=== PATIENT | female | born 1935 | race Caucasian/White ===

== ENCOUNTER 2016-08-17 21:52 | Inpatient (IN) | payer MEDICARE ==
[~2016-08-17] VITALS: Ht 162.6 cm; Wt 65.0 kg
[~2016-08-17 21:52] MED LIST: CALCTAB19 PO; DIPH2.5T14 PO; LACTCAP8 PO; LEVO50TA4 PO; LOVA20TA PO; MIRT30TA PO; MULTTAB6 PO; TELM1TAB2 PO; TRAM50TA PO
[2016-08-17 22:00] VITALS: BP 134/64; PULSE 73; RESP 18; TEMP 99; O2SAT 98
--- NOTE | 2016-08-17 22:05 | PD ---
HPI Chief Complaint: Abdominal Pain Time Seen by Provider: 22:05 Travel History International Travel<30 days: No Contact w/Intl Traveler<30days: No Traveled to known affect area: No History of Present Illness HPI 81-year-old female coming in with sudden onset abdominal pain at roughly 5:30 PM this evening area patient states she had eaten supper and took some tramadol and her lovastatin which she feels started her abdominal discomfort. Patient states epigastric pain and tenderness and nausea without vomiting. Patient states she did have a bowel movement was normal after the onset of this pain which slightly decreased her overall discomfort. However, patient states the pain has progressively worsened and shifted to both flanks and back, as well as lower end of the stomach. She continues to be nauseous but no vomiting has occurred. She denies fever, chills or other symptoms. Patient has had her appendix removed, but still has her gallbladder. Patient denies specific chest pain or shortness of breath. Patient has a history of chronic low back pain in the past. She is not a drinker and denies significant alcohol use. No history of pancreatitis in the past. She is allergic to codeine, cortisone, and penicillin. PFSH Past Medical History Arthritis: Yes Blood Disorders: No Heart Rhythm Problems: No Cancer: Yes (MULTIPLE BCC EXCISION) Cardiac Catheterization: No Cardiovascular Problems: No High Cholesterol: Yes Chemotherapy: No Congestive Heart Failure: No Diabetes: No Endocrine: Yes Gastrointestinal Disorders: Yes GERD: Yes Genitourinary: No Hiatal Hernia: Yes Hypertension: Yes Immune Disorder: No Musculoskeletal: Yes Neurologic: Yes Psychiatric: No Reproductive: No Respiratory: No Radiation Therapy: No Thyroid Disease: Yes Ulcer: Yes Past Surgical History Abdominal Surgery: Yes (APPENDECTOMY (AGE 21) ) Appendectomy: Yes Coronary Artery Bypass Graft: No Gynecologic Surgery: Yes (HYSTERECTOMY 1999) Neurologic Surgery: Yes (LAMINECTOMY 1978) Oral Surgery: Yes (T&A (AGE 12); ) Other Surgery: Yes Social History Alcohol Use: Yes (ONE DRINK DAILY) Tobacco Use: No Substance Use: No Allergies-Medications (Allergen,Severity, Reaction): Coded Allergies: Codeine (Unverified Allergy, Severe, RASH, 08/17/16) Cortisone (Verified Allergy, Severe, INCREASED HEART RATE; FLUSHING, 08/17) Penicillin (Verified Allergy, Severe, RASH, 08/17/16) Reported Meds & Prescriptions Reported Meds & Active Scripts Active Reported Mirtazapine 30 Mg Tab Tramadol (Tramadol HCl) 50 Mg Tab Telmisartan 80 Mg Tab 80 Mg PO DAILY Probiotic (Lactobacillus Acidophilus) 1 Cap Cap 1 Cap PO TIDAC Multi-Vitamin (Multiple Vitamin) 1 Tab Tab Lovastatin 20 Mg Tab Levothyroxine (Levothyroxine Sodium) 50 Mcg Tab Calcium 600+D (Calcium Carbonate-Vitamin D) 600-200 Mg-Unit Tab 1 Tab PO BID Review of Systems Except as stated in HPI: all other systems reviewed are Neg General / Constitutional: No: Fever Eyes: No: Visual changes HENT: No: Headaches Cardiovascular: No: Chest Pain or Discomfort Respiratory: No: Shortness of Breath Gastrointestinal: Positive: Nausea, Abdominal Pain (see history of present illness), No: Vomiting, Diarrhea Genitourinary: No: Dysuria Musculoskeletal: No: Pain Skin: No Rash Neurologic: No: Weakness Psychiatric: No: Depression Endocrine: No: Polydipsia Hematologic/Lymphatic: No: Easy Bruising Physical Exam Narrative GENERAL: Patient appears in mild to moderate distress. SKIN: Warm and dry. Normal color. Normal turgor. No diaphoresis. HEAD: Atraumatic. Normocephalic. EYES: Pupils equal and round. No scleral icterus. No injection or drainage. ENT: No nasal bleeding or discharge. Mucous membranes pink and moist. Pharynx is unremarkable. Airway is patent. NECK: Trachea midline. No JVD. Supple and nontender. CARDIOVASCULAR: Regular rate and rhythm. No murmurs gallops or rubs. RESPIRATORY: No accessory muscle use. Clear to auscultation. Breath sounds equal bilaterally. GASTROINTESTINAL: Abdomen soft, moderate epigastric and right upper quadrant tenderness, nondistended. Positive Munroe sign on the right. Hepatic and splenic margins not palpable. MUSCULOSKELETAL: Extremities without clubbing, cyanosis, or edema. No obvious deformities. NEUROLOGICAL: Awake and alert. No obvious cranial nerve deficits. Motor grossly within normal limits. Five out of 5 muscle strength in the arms and legs. Normal speech. PSYCHIATRIC: Appropriate mood and affect; insight and judgment normal. Data Data Last Documented VS Vital Signs Date Time Temp Pulse Resp B/P Pulse Ox O2 Delivery O2 Flow Rate FiO2 08/17/16 22:40 18 98 08/17/16 22:00 99.0 73 134/64 Orders Complete Blood Count With Diff (08/17/16 22:09) Comprehensive Metabolic Panel (08/17/16 22:09) Lipase (08/17/16 22:09) Lactic Acid (08/17/16 22:09) Prothrombin Time / Inr (Pt) (08/17/16 22:09) Act Partial Throm Time (Ptt) (08/17/16 22:09) Urinalysis - C+S If Indicated (08/17/16 22:09) Iv Access Insert/Monitor (08/17/16 22:09) Ecg Monitoring (08/17/16 22:09) Oximetry (08/17/16 22:09) NPO (08/17/16 22:09) Morphine Inj (Morphine Inj) (08/17/16 22:15) Ondansetron Inj (Zofran Inj) (08/17/16 22:15) Sodium Chloride 0.9% Flush (Ns Flush) (08/17/16 22:15) Electrocardiogram (08/17/16 22:09) Sodium Chlorid 0.9% 500 Ml Inj (Ns 500 M (08/17/16 22:15) Ct Abd/Pel W Iv Contrast(Rout) (08/17/16 22:45) Oral Contrast - Adult (08/17/16 22:48) MDM Medical Decision Making Medical Screen Exam Complete: Yes Emergency Medical Condition: Yes Differential Diagnosis Gastritis. Gallbladder disease. Pancreatitis. Cardiac syndrome. Narrative Course Patient is uncomfortable but medically stable at time of exam. Labs ordered including CBC, CMP, lipase, lactic acid, PT PTT and INR, and urinalysis. Patient is given 4 mg IV morphine as well as 4 mg IV. Patient is started on 500 mL normal saline bolus. EKG is performed showing sinus rhythm without acute changes suggestive of acute MT. This is reviewed by Dr. Amaya. Abdominal CT with IV and oral contrast is ordered. 2300 hrs., the patient is discussed with Dr. Amaya assumes care of the patient. Condition: Stable Nawaf Bragg Aug 17, 2016 22:05
[2016-08-17] MEDS ORDERED: SODIUM CHLORIDE 0.9% FLUSH 5 ML FLUSH IVF PRN (22:15)
[2016-08-17] MEDS ORDERED: SODIUM CHLORID 0.9% 500 ML INJ 500 ML IV ONE (22:15)
[2016-08-17] MEDS ORDERED: MORPHINE SULFATE 4 MG/ML INJ IV PUSH ONE (22:15)
[2016-08-17] MEDS ORDERED: ONDANSETRON HCL 4 MG/2 ML VIAL IVP ONE (22:15)
[2016-08-17 22:40] VITALS: RESP 18; O2SAT 98
[2016-08-17] MEDS ORDERED: DIATRIZOATE MEGLUM/DIATRIZOATE SOD 9 ML CUP ONE (23:10)
[2016-08-17 23:44] LABS: AUTOMATED NEUTROPHIL # 6.5 TH/MM3 (1.8-7.7); BASOPHIL % 0.5 % (0.0-2.0); EOSINOPHIL % 0.1 % (0.0-4.0); HEMATOCRIT 44.7 % (35.0-46.0); HEMO FLAGS DIFF FINAL; LYMPH % 23.4 % (9.0-44.0); LYMPHOCYTE # 2.1 TH/MM3 (1.0-4.8); MEAN CELL VOLUME 89.8 FL (80.0-100.0); MEAN CORPUSCULAR HEMOGLOBIN 31.1 PG (27.0-34.0); MEAN CORPUSCULAR HGB CONC 34.6 % (32.0-36.0); MONO % 3.7 % (0.0-8.0); NEUT % 72.3 % (16.0-70.0); PLATELET COUNT 251 TH/MM3 (150-450); RED BLOOD COUNT 4.98 MIL/MM3 (4.00-5.30); RED CELL DISTRIBUTION WIDTH 13.4 % (11.6-17.2)
[2016-08-17 23:56] LABS: ALKALINE PHOSPHATASE 83 U/L (45-117); TOTAL BILIRUBIN ADULT 0.7 MG/DL (0.2-1.0)
[2016-08-17 23:57] LABS: ALT (GPT) 24 U/L (10-53); ANION GAP 13 MEQ/L (5-15); AST (GOT) 27 U/L (15-37); BICARBONATE 21.8 MEQ/L (21.0-32.0); BLOOD UREA NITROGEN 23 MG/DL (7-18); CHLORIDE 99 MEQ/L (98-107); GLOMERULAR FILTRATION RATE 55 ML/MIN (>89); POTASSIUM 3.7 MEQ/L (3.5-5.1); SODIUM (NA) 134 MEQ/L (136-145)
[2016-08-18] VITALS (11 sets, daily range): BP systolic 135–191; BP diastolic 70–83; PULSE 67–73; RESP 14–17; TEMP 97.1–98.7; O2SAT 94–100
[2016-08-18 00:09] LABS: APTT (PATIENT) 21.7 SEC (24.3-30.1); INTERNATIONAL NORMALIZED RATIO 0.9 RATIO; PROTHROMBIN TIME - PATIENT 10.4 SEC (9.8-11.6)
[2016-08-18 00:13] LABS: CREATINE KINASE 164 U/L (26-192)
[2016-08-18 01:05] LABS: BLOOD, URINE NEG (NEG); COMMENT (UR) CULT NOT INDICATED; CULTURE IF INDICATED CULT NOT INDICATED; GLUCOSE,URINE NEG (NEG); KETONE, URINE 40 mg/dL (NEG); NITRITE,URINE NEG (NEG); URINE COLOR YELLOW (YELLW/STRAW)
[2016-08-18] MEDS ORDERED: ONDANSETRON HCL 4 MG/2 ML VIAL IV PUSH ONE (01:30)
[2016-08-18] MEDS ORDERED: IOHEXOL 350 MG/ML 10 ML VIAL (for RAD DIAG) IV ONE (01:41)
--- NOTE | 2016-08-18 02:08 | RADRPT ---
EXAM DATE/TIME: 08/18/2016 01:26 [facility] COMPARISON: No previous studies available for comparison. INDICATIONS : Upper abdominal pain. IV CONTRAST: 100 cc Omnipaque 350 (iohexol) IV ORAL CONTRAST: Prescribed oral contrast ingested. RADIATION DOSE: 6.77 CTDIvol (mGy) MEDICAL HISTORY : Gastroesophageal reflux disease. Hypertension. Hernia, hiatal. SURGICAL HISTORY : Appendectomy. Hysterectomy.Fusion, lumbar.Laminectomy. ENCOUNTER: Initial ACUITY: 1 day PAIN SCALE: 5/10 LOCATION: upper quadrant abdomen TECHNIQUE: Volumetric scanning of the abdomen and pelvis was performed. Using automated exposure control and ad justment of the mA and/or kV according to patient size, radiation dose was kept as low as reasonably achievable to obtain optimal diagnostic quality images. FINDINGS: There is dilation of the common bile duct and pancreatic duct, with the common bile duct measuring 8 mm in dimension and the pancreatic duct measuring up to 7 mm. No calcifications seen in the region o f the ampulla. The pancreatic duct enlargement extends into the mid body. No calcified gallstones. The liver has a homogeneous pattern of enhancement without focal lesion. The spleen is normal in si ze. Both adrenal glands are normal in size. Both kidneys are normal in configuration without eviden ce of hydronephrosis. There are multiple dilated loops of small bowel which measure up to 3 cm in diameter. Oral contrast only passes half way through the small bowel. There are several small bowel loops in the left hypoga stric and central region that contain air-fluid levels. Moderate amount of stool in the right and tr ansverse colon. There is a moderate amount of free fluid in the pelvis on the right-sided. Urinary bladder margins are smooth. There is a 2 cm mass like density seen on image #28 located to the left of the aorta and superior mes enteric artery which is of uncertain organ of origin. This has a similar density as the duodenum and has a similar density as the pancreas. Is uncertain whether this represents the proximal jejunum or an exophytic mass arising from the pancreas (both structures have similar density on this scan). No evidence of retroperitoneal adenopathy or deep pelvic adenopathy. The inguinal regions are unremark able. The visualized lower lungs are clear. Wide windows for bony detail demonstrate the osseous structure s to be intact. Transpedicular screws are present at L5 and S1 with associated pars defect. CONCLUSION: 1. Dilated loops of small bowel with air-fluid levels suggest small bowel obstruction or dynamic ileu s. No transition point or cause for the obstruction seen. 2. Dilation of the common bile duct and pancreatic duct down to the ampulla suggests possible ampulla ry mass. No stones seen. Recommend direct visualization with ERCP. 3. There is a 2 cm soft tissue density in the left retroperitoneum which probably represents proximal loop of small bowel the junction of the duodenum and jejunum. However, the location and density wou ld also be consistent with a splenic artery aneurysm or an exophytic mass arising from the body of th e pancreas. Jones Jj MD on August 18, 2016 at 1:56 Board Certified Radiologist. This report was verified electronically.
[2016-08-18] MEDS ORDERED: SODIUM CHLOR 0.9% 1000 ML INJ 1,000 ML IV SCH (02:19)
--- NOTE | 2016-08-18 03:12 | PD ---
Data Data Last Documented VS Vital Signs Date Time Temp Pulse Resp B/P Pulse Ox O2 Delivery O2 Flow Rate FiO2 08/17/16 22:40 18 98 08/17/16 22:00 99.0 73 134/64 Orders Complete Blood Count With Diff (08/17/16 22:09) Comprehensive Metabolic Panel (08/17/16 22:09) Lipase (08/17/16 22:09) Lactic Acid (08/17/16 22:09) Prothrombin Time / Inr (Pt) (08/17/16 22:09) Act Partial Throm Time (Ptt) (08/17/16 22:09) Urinalysis - C+S If Indicated (08/17/16 22:09) Iv Access Insert/Monitor (08/17/16 22:09) Ecg Monitoring (08/17/16 22:09) Oximetry (08/17/16 22:09) NPO (08/17/16 22:09) Morphine Inj (Morphine Inj) (08/17/16 22:15) Ondansetron Inj (Zofran Inj) (08/17/16 22:15) Sodium Chloride 0.9% Flush (Ns Flush) (08/17/16 22:15) Electrocardiogram (08/17/16 22:09) Sodium Chlorid 0.9% 500 Ml Inj (Ns 500 M (08/17/16 22:15) Oral Contrast - Adult (08/17/16 22:48) Ckmb (Isoenzyme) Profile (08/17/16 23:03) Troponin I (08/17/16 23:03) Diatrizoate Liq ( [place]astro[place] Liq) (08/17/16 23:10) CKMB (08/17/16 22:15) CKMB% (08/17/16 22:15) Ondansetron Inj (Zofran Inj) (08/18/16 01:30) Ct Abd/Pel W Iv Contrast(Rout) (08/18/16 22:45) Iohexol 350 Inj (Omnipaque 350 Inj) (08/18/16 01:41) Place Ng Tube To Low [place] (08/18/16 02:18) Sodium Chlor 0.9% 1000 Ml Inj (Ns 1000 M (08/18/16 02:19) Labs Laboratory Tests Test 08/17/16 08/17/16 22:15 23:59 White Blood Count 9.0 TH/MM3 Red Blood Count 4.98 MIL/MM3 Hemoglobin 15.5 GM/DL Hematocrit 44.7 % Mean Corpuscular Volume 89.8 FL Mean Corpuscular Hemoglobin 31.1 PG Mean Corpuscular Hemoglobin 34.6 % Concent Red Cell Distribution Width 13.4 % Platelet Count 251 TH/MM3 Mean Platelet Volume 9.8 FL Neutrophils (%) (Auto) 72.3 % Lymphocytes (%) (Auto) 23.4 % Monocytes (%) (Auto) 3.7 % Eosinophils (%) (Auto) 0.1 % Basophils (%) (Auto) 0.5 % Neutrophils # (Auto) 6.5 TH/MM3 Lymphocytes # (Auto) 2.1 TH/MM3 Monocytes # (Auto) 0.3 TH/MM3 Eosinophils # (Auto) 0.0 TH/MM3 Basophils # (Auto) 0.0 TH/MM3 CBC Comment DIFF FINAL Differential Comment Sodium Level 134 MEQ/L Potassium Level 3.7 MEQ/L Chloride Level 99 MEQ/L Carbon Dioxide Level 21.8 MEQ/L Anion Gap 13 MEQ/L Blood Urea Nitrogen 23 MG/DL Creatinine 0.98 MG/DL Estimat Glomerular Filtration 55 ML/MIN Rate Random Glucose 141 MG/DL Lactic Acid Level 2.4 mmol/L Calcium Level 9.5 MG/DL Total Bilirubin 0.7 MG/DL Aspartate Amino Transf 27 U/L (AST/SGOT) Alanine Aminotransferase 24 U/L (ALT/SGPT) Alkaline Phosphatase 83 U/L Total Protein 7.2 GM/DL Albumin 4.0 GM/DL Lipase 159 U/L Prothrombin Time 10.4 SEC Prothromb Time International 0.9 RATIO Ratio Activated Partial 21.7 SEC Thromboplast Time Total Creatine Kinase 164 U/L Creatine Kinase MB 2.0 NG/ML Troponin I LESS THAN 0.02 NG/ML Urine Color YELLOW Urine Turbidity HAZY Urine pH 8.0 Urine Specific [place] 1.012 Urine Protein NEG mg/dL Urine Glucose (UA) NEG mg/dL Urine Ketones 40 mg/dL Urine Occult Blood NEG Urine Nitrite NEG Urine Bilirubin NEG Urine Urobilinogen LESS THAN 2.0 MG/DL Urine Leukocyte Esterase TRACE Urine WBC 3 /hpf Urine Amorphous Sediment OCC Microscopic Urinalysis Comment CULT NOT INDICATED MDM Supervised Visit with [facility]: Yes Narrative Course I, Dr. Amaya, have reviewed the advance practice practitioner's documentation and am in agreement, met with the patient face to face, made the diagnosis, and the medical decision making was done by me. See his note for further details. CBC and CMP are essentially unremarkable. Lipase is 159. Lactic acid is 2.4. CT abdomen pelvis: CONCLUSION: 1. Dilated loops of small bowel with air-fluid levels suggest small bowel obstruction or dynamic ileus. No transition point or cause for the obstruction seen. 2. Dilation of the common bile duct and pancreatic duct down to the ampulla suggests possible ampullary mass. No stones seen. Recommend direct visualization with ERCP. 3. There is a 2 cm soft tissue density in the left retroperitoneum which probably represents proximal loop of small bowel the junction of the duodenum and jejunum. However, the location and density would also be consistent with a splenic artery aneurysm or an exophytic mass arising from the body of the pancreas. NG tube placed with 1.5 L of clear/reddish aspirate. NG tube was set to low intermittent suction. Patient was made aware of all findings and plan for admission with likely GI consultation. Case discussed with [facility] hospitalist Dr. Walls who will admit the patient to his service. Diagnosis Primary Impression: Small bowel obstruction Admitting Information Admitting Physician Requests: Observation Condition: Stable Vasu Amaya MD Aug 18, 2016 03:12
[2016-08-18] MEDS ORDERED: ONDANSETRON HCL 4 MG/2 ML VIAL IV PRN (03:15)
[2016-08-18] MEDS ORDERED: SODIUM CHLORIDE 0.9% FLUSH 5 ML FLUSH FLUSH PRN (03:15)
[2016-08-18] MEDS ORDERED: MORPHINE SULFATE 4 MG/ML INJ IV PUSH ONE (04:00)
[2016-08-18] MEDS: NS + KCL 20 MEQ INJ 1,000 ML IV SCH ×3 (05:07→15:49)
[2016-08-18] MEDS ORDERED: ACETAMINOPHEN 325 MG TAB PO PRN (08:45)
--- NOTE | 2016-08-18 08:49 | PD.CONS ---
HPI History of Present Illness This is a 81 year old female patient who came to the ER for evaluation of nausea and vomiting and abdominal pain that began suddenly yesterday evening. She states she actually started having epigastric abdominal pain prior to eating dinner last night, but states it was mild at first. She had blueberry pancakes for dinner and shortly after started having more severe constant epigastric pain and lower abdominal pain that she describes as a burning pain without radiation. She also had nausea/vomiting with undigested food. She reports that she had a normal bowel movement with no blood or mucous, but that her pain continued and therefore she came to the ER for further evaluation. She denies any recent weight loss or decreased appetite up until yesterday. She states she has actually gained about 20 lbs after starting a new anxiety med. Abdomen/Pelvis CT (08/18/16)-----> 1. Dilated loops of small bowel with air -fluid levels suggest small bowel obstruction or dynamic ileus. No transition point or cause for the obstruction seen. 2. Dilation of the common bile duct and pancreatic duct down to the ampulla suggests possible ampullary mass. No stones seen. Recommend direct visualization with ERCP. 3. There is a 2 cm soft tissue density in the left retroperitoneum which probably represents proximal loop of small bowel the junction of the duodenum and jejunum. However, the location and density would also be consistent with a splenic artery aneurysm or an exophytic mass arising from the body of the pancreas. Her LFTs are normal. She went for further evaluation with MRI, but these results are pending. She does have a history of lymphocytic colitis, but states that this is stable at this time. She had a flexible sigmoidoscopy (12/14/14)----> diverticulosis sigmiod, descending-random biopsies, polyp rectum 5 mm cold biopsy with complete removal, retroflexed views revealed internal hemorrhoids, rectal exam revealed no abnormalities of the rectum. Pathology with no pathologic changes of duodenum biopsy, reactive gastropathy of the stomach, benign gastroesophageal junction mucosa with mild chronic inflammation of the gastric component, microscopic colitis with intraepithelial lymphocytosis and surgace epithelial injury, consistent with lymphocytic colitis. EGD (12/14/14)----> gastritis antrum, duodenitis bulb, esophagitis distal esophagus, retroflexed views revealed a small hiatal hernia. Colonoscopy (11/21/10)---> Moderate diverticulosis in the sigmoid, descending colon, medium internal hemorrhoids. (Holly Goldman) PFSH Past Medical History Lymphocytic colitis Adjustement disorder with anxiety HTN Cataract DDD Diverticulosis GERD Hemorrhoids Hx H. Pylori Hyperlipidemia Hypothyroidism OA Osteopenia Vitamin D Deficiency Past Surgical History Appendectomy Skin bx Flexible sigmoidoscopy EGD Colonoscopy Sinus surgery Back surgery (Holly Goldman) Coded Allergies: Codeine (Unverified Allergy, Severe, RASH, 08/17/16) Cortisone (Verified Allergy, Severe, INCREASED HEART RATE; FLUSHING, 08/17) Penicillin (Verified Allergy, Severe, RASH, 08/17/16) Medications Allergies Coded Allergies Type Severity Reaction Last Updated Verified Codeine Allergy Severe RASH 08/17/16 No Cortisone Allergy Severe INCREASED HEART RATE; FLUSHING 08/17/16 Yes Penicillin Allergy Severe RASH 08/17/16 Yes Active Scripts Medications Dose Route/Sig Days Date Category Mirtazapine 30 Mg Tab 30 Mg PO HS 06/12/16 Reported Tramadol (Tramadol HCl) 50 Mg Tab 50 Mg PO Q6HR 06/12/16 Reported Telmisartan 80 Mg Tab 80 Mg PO DAILY 06/12/16 Reported Probiotic (Lactobacillus Acidophilus) 1 Cap Cap 1 Cap PO TIDAC 06/12/16 Reported Multi-Vitamin (Multiple Vitamin) 1 Tab Tab 1 Tab PO DAILY 06/12/16 Reported Lovastatin 20 Mg Tab 20 Mg PO HS 06/12/16 Reported Levothyroxine (Levothyroxine Sodium) 50 Mcg Tab 50 Mcg PO DAILY 06/12/16 Reported Calcium 600+D (Calcium Carbonate-Vitamin D) 600-200 Mg-Unit Tab 1 Tab PO BID 06/12/16 Reported Family History Mother with CAD Father had sinus arrhythmia Brother heart disease Social History Hx of tobacco use, smoked 1/2ppd x 40 years, quit 15 years ago Drinks one alcoholic beverage per night Denies any illicit drug use (Holly Goldman) Review of Systems Constitutional: COMPLAINS OF: Weight gain, DENIES: Fever, Weight loss Respiratory: DENIES: Cough, Shortness of breath Cardiovascular: DENIES: Chest pain Gastrointestinal: COMPLAINS OF: Abdominal pain, Nausea, Vomiting, DENIES: Black stools, Bloody stools, Constipation, Diarrhea, Heartburn Musculoskeletal: DENIES: Back pain Integumentary: DENIES: Jaundice Neurologic: DENIES: Headache Psychiatric: DENIES: Confusion (Holly Goldman HAVEN) GI Exam Vitals I&O Vital Signs Date Time Temp Pulse Resp B/P Pulse Ox O2 Delivery O2 Flow Rate FiO2 08/18/16 07:48 94 21 08/18/16 07:25 68 17 182/83 96 08/18/16 05:10 72 16 138/72 100 08/18/16 04:50 98 21 08/18/16 03:00 70 16 135/70 100 08/18/16 02:00 68 16 140/73 99 08/17/16 22:40 18 98 08/17/16 22:06 18 08/17/16 22:00 99.0 73 18 134/64 98 Imaging Last Impressions Abdomen/Pelvis CT 08/18/162244 Signed Impressions: Service Date/Time: Thursday, August 18, 2016 01:26 - CONCLUSION: 1. Dilated loops of small bowel with air-fluid levels suggest small bowel obstruction or dynamic ileus. No transition point or cause for the obstruction seen. 2. Dilation of the common bile duct and pancreatic duct down to the ampulla suggests possible ampullary mass. No stones seen. Recommend direct visualization with ERCP. 3. There is a 2 cm soft tissue density in the left retroperitoneum which probably represents proximal loop of small bowel the junction of the duodenum and jejunum. However, the location and density would also be consistent with a splenic artery aneurysm or an exophytic mass arising from the body of the pancreas. Jones Jj MD Laboratory Test 08/17/16 08/17/16 08/18/16 22:15 23:59 05:36 White Blood Count 9.0 TH/MM3 Red Blood Count 4.98 MIL/MM3 Hemoglobin 15.5 GM/DL Hematocrit 44.7 % Mean Corpuscular Volume 89.8 FL Mean Corpuscular Hemoglobin 31.1 PG Mean Corpuscular Hemoglobin 34.6 % Concent Red Cell Distribution Width 13.4 % Platelet Count 251 TH/MM3 Mean Platelet Volume 9.8 FL Neutrophils (%) (Auto) 72.3 % Lymphocytes (%) (Auto) 23.4 % Monocytes (%) (Auto) 3.7 % Eosinophils (%) (Auto) 0.1 % Basophils (%) (Auto) 0.5 % Neutrophils # (Auto) 6.5 TH/MM3 Lymphocytes # (Auto) 2.1 TH/MM3 Monocytes # (Auto) 0.3 TH/MM3 Eosinophils # (Auto) 0.0 TH/MM3 Basophils # (Auto) 0.0 TH/MM3 CBC Comment DIFF FINAL Differential Comment Sodium Level 134 MEQ/L Potassium Level 3.7 MEQ/L Chloride Level 99 MEQ/L Carbon Dioxide Level 21.8 MEQ/L Anion Gap 13 MEQ/L Blood Urea Nitrogen 23 MG/DL Creatinine 0.98 MG/DL Estimat Glomerular Filtration 55 ML/MIN Rate Random Glucose 141 MG/DL Lactic Acid Level 2.4 mmol/L 1.2 mmol/L Calcium Level 9.5 MG/DL Total Bilirubin 0.7 MG/DL Aspartate Amino Transf 27 U/L (AST/SGOT) Alanine Aminotransferase 24 U/L (ALT/SGPT) Alkaline Phosphatase 83 U/L Total Protein 7.2 GM/DL Albumin 4.0 GM/DL Lipase 159 U/L Prothrombin Time 10.4 SEC Prothromb Time International 0.9 RATIO Ratio Activated Partial 21.7 SEC Thromboplast Time Total Creatine Kinase 164 U/L Creatine Kinase MB 2.0 NG/ML Troponin I LESS THAN 0.02 NG/ML Urine Color YELLOW Urine Turbidity HAZY Urine pH 8.0 Urine Specific [place] 1.012 Urine Protein NEG mg/dL Urine Glucose (UA) NEG mg/dL Urine Ketones 40 mg/dL Urine Occult Blood NEG Urine Nitrite NEG Urine Bilirubin NEG Urine Urobilinogen LESS THAN 2.0 MG/DL Urine Leukocyte Esterase TRACE Urine WBC 3 /hpf Urine Amorphous Sediment OCC Microscopic Urinalysis Comment CULT NOT INDICATED Physical Examination HEENT: Normocephalic; atraumatic; no jaundice. CHEST: Resp. even/unlabored CARDIAC: RRR ABDOMEN: Soft, nondistended, nontender; no hepatosplenomegaly; bowel sounds are present in all four quadrants. NGT with clear bluish/pink/purple secretions - pt had blueberry pancakes for dinner EXTREMITIES: No clubbing, cyanosis, or edema. SKIN: Normal; no rash; no jaundice. BOTTLE SORTER: No focal deficits; alert and oriented times three. (Holly Goldman) Assessment and Plan Plan ASSESSMENT: - PSBO vs. Ileus. Abdominal pain, nausea, vomiting with abnormal imaging on CT with dilated loops of small bowel with air fluid levels to suggest small bowel obstruction or dynamic ileus. NPO. NGT to LIWS. No distention at this time. Had bowel movement last night. - Abnormal imaging with dilation of the common bile duct and pancreatic duct down to the ampulla suggests possible ampullary mass. No stones seen. Recommend direct visualization with ERCP. LFTS are normal. WBC 9.0. No abnormal weight loss. Of note, she does have some adenopathy on right, ant.cervical chain. She denies any recent URI symptoms. MRI pending. - Hx Lymphocytic colitis. Not currently on meds per patient. Flexible sigmoidoscopy (12/14/14)----> diverticulosis sigmiod, descending-random biopsies, polyp rectum 5 mm cold biopsy with complete removal, retroflexed views revealed internal hemorrhoids, rectal exam revealed no abnormalities of the rectum. Pathology with no pathologic changes of duodenum biopsy, reactive gastropathy of the stomach, benign gastroesophageal junction mucosa with mild chronic inflammation of the gastric component, microscopic colitis with intraepithelial lymphocytosis and surgace epithelial injury, consistent with lymphocytic colitis. EGD (12/14/14)----> gastritis antrum, duodenitis bulb, esophagitis distal esophagus, retroflexed views revealed a small hiatal hernia. Colonoscopy (11/21/10)---> Moderate diverticulosis in the sigmoid, descending colon, medium internal hemorrhoids. PLAN: - NPO - NGT to LIWS - Await results of MRI - AFP, Ca19-9, CEA - CBC, LFT in am - KUB in am - Will need evaluation with ERCP at some point, timing to be determined. LFTs are not obstructive at this time - Supportive care - Further recommendations to follow based on results of above - Pt seen and examined by Dr. Sabillon and myself and this note is written on his behalf (Holly Goldman) Physician Comments Seen and examined with Ms. Susi OROURKE, MRI shows SBO and no issues with pancreas or CBD. LFTs normal. NG to L.I.S. Await surgical evaluation. Discussed with at the bedside. Thank you (Juanita Sabillon MD) Holly Goldman Aug 18, 2016 08:49 Juanita Sabillon MD Aug 18, 2016 16:50
[2016-08-18] MEDS ORDERED: GADODIAMIDE PF 287 MG/ML 20 ML VIAL (for RAD MRI) IV ONE (08:51)
[2016-08-18] MEDS: SODIUM CHLORIDE 0.9% FLUSH 5 ML FLUSH FLUSH SCH ×2 (09:00→21:00)
--- NOTE | 2016-08-18 09:11 | HHI.HP ---
HPI Service [facility] Hospitalists Primary Care Physician Cira Francois MD Admission Diagnosis small bowel obstruction Chief Complaint: Abd pain Travel History International Travel<30 Days: No Contact w/Intl Traveler <30 Da: No Traveled to Known Affected Are: No History of Present Illness Ms. Clements is a pleasant 81 y/o female with HTN, hyperlipidemia, hypothyroidism and GERD who presented to the ED at [facility] on 08/17/16 with complaints of sudden onset abdominal pain at about 5:30 PM yesterday evening. She reported that the pain began after he had eaten dinner and then took her tramadol and her lovastatin which she feels started her abdominal discomfort. Patient reports that her pain is mainly in the epigastric area with associated nausea but no vomiting. Patient states she did have a normal bowel movement after the onset of this pain which slightly decreased her overall discomfort. However, patient states the pain has progressively worsened and shifted to both flanks and back, as well as lower end of the abdomen. She continues to be nauseous but no vomiting has occurred. She denies fever, chills, dizziness, palpitations, chest pain or shortness of breath. CT Abd/pelvis (08/17/16) noted dilated loops of small bowel with air-fluid levels suggest small bowel obstruction or dynamic ileus, no transition point or cause for the obstruction seen, dilation of the common bile duct and pancreatic duct down to the ampulla suggests possible ampullary mass, no stones seen. There is also a 2 cm soft tissue density in the left retroperitoneum which probably represents proximal loop of small bowel the junction of the duodenum and jejunum. However, the location and density would also be consistent with a splenic artery aneurysm or an exophytic mass arising from the body of the pancreas. Pts LFTs at admission were all WNL. She denies any weight loss. SHe does drink one alcoholic beverage per day. Review of Systems Constitutional: DENIES: Fever, Chills Eyes: DENIES: Vision loss Ears, nose, mouth, throat: DENIES: Hearing loss Respiratory: DENIES: Cough, Shortness of breath Cardiovascular: DENIES: Chest pain, Palpitations Gastrointestinal: COMPLAINS OF: Abdominal pain, Nausea, DENIES: Constipation, Diarrhea, Vomiting Genitourinary: DENIES: Urinary frequency, Urinary incontinence, Hematuria Musculoskeletal: DENIES: Back pain, Neck pain Integumentary: DENIES: Rash Hematologic/lymphatic: DENIES: Bruising Neurologic: DENIES: Headache Psychiatric: DENIES: Confusion Past Family Social History Past Medical History HTN CKD, stage 3 DDD Anxiety/Depression GERD Hypothyroidism Hyperlipidemia Osteoarthritis Lymphocytic colitis Past Surgical History Appendectomy EGD/colonoscopy Lumbar vertebral fusion Sinus surgery Tonsillectomy DANI Flexible sigmoidoscopy (12/14/14)---> diverticulosis sigmoid, descending, polyp rectum 5 mm cold biopsy with complete removal, internal hemorrhoids. EGD (12/14/14)----> gastritis antrum, duodenitis bulb, esophagitis distal esophagus, a small hiatal hernia. Colonoscopy (11/21/10)---> Moderate diverticulosis in the sigmoid, descending colon, medium internal hemorrhoids. Reported Medications Mirtazapine 30 Mg Tab 30 Mg PO HS Tramadol (Tramadol HCl) 50 Mg Tab 50 Mg PO Q6HR Telmisartan 80 Mg Tab 80 Mg PO DAILY Probiotic (Lactobacillus Acidophilus) 1 Cap Cap 1 Cap PO TIDAC Multi-Vitamin (Multiple Vitamin) 1 Tab Tab 1 Tab PO DAILY Lovastatin 20 Mg Tab 20 Mg PO HS Levothyroxine (Levothyroxine Sodium) 50 Mcg Tab 50 Mcg PO DAILY Calcium 600+D (Calcium Carbonate-Vitamin D) 600-200 Mg-Unit Tab 1 Tab PO BID Allergies: Coded Allergies: Codeine (Unverified Allergy, Severe, RASH, 08/17/16) Cortisone (Verified Allergy, Severe, INCREASED HEART RATE; FLUSHING, 08/17) Penicillin (Verified Allergy, Severe, RASH, 08/17/16) Family History Denies any hx of GI malignancy Social History Hx of tobacco use, smoked 1/2ppd x 40 years, quit 15 years ago Drinks one alcoholic beverage per night Denies any illicit drug use Physical Exam Vital Signs Vital Signs Date Time Temp Pulse Resp B/P Pulse Ox O2 Delivery O2 Flow Rate FiO2 08/18/16 07:48 94 21 08/18/16 07:25 68 17 182/83 96 08/18/16 05:10 72 16 138/72 100 08/18/16 04:50 98 21 08/18/16 03:00 70 16 135/70 100 08/18/16 02:00 68 16 140/73 99 08/17/16 22:40 18 98 08/17/16 22:06 18 08/17/16 22:00 99.0 73 18 134/64 98 Physical Exam GENERAL: This is a well-nourished, well-developed patient, in no apparent distress. HEENT: Atraumatic. Normocephalic. No temporal or scalp tenderness. No scleral icterus. NGT in place NECK: Trachea midline, supple, nontender. CARDIO: Regular. RESP: CTA bilaterally. No wheezes, rales, or rhonchi. ABD: +BS, soft, mildly distended, diffusely tender EXT: Extremities without clubbing, cyanosis, or edema. NEURO: Awake and alert. Motor and sensory grossly within normal limits. Normal speech. Laboratory Laboratory Tests Test 08/17/16 08/17/16 08/18/16 22:15 23:59 05:36 White Blood Count 9.0 Red Blood Count 4.98 Hemoglobin 15.5 Hematocrit 44.7 Mean Corpuscular Volume 89.8 Mean Corpuscular Hemoglobin 31.1 Mean Corpuscular Hemoglobin 34.6 Concent Red Cell Distribution Width 13.4 Platelet Count 251 Mean Platelet Volume 9.8 Neutrophils (%) (Auto) 72.3 Lymphocytes (%) (Auto) 23.4 Monocytes (%) (Auto) 3.7 Eosinophils (%) (Auto) 0.1 Basophils (%) (Auto) 0.5 Neutrophils # (Auto) 6.5 Lymphocytes # (Auto) 2.1 Monocytes # (Auto) 0.3 Eosinophils # (Auto) 0.0 Basophils # (Auto) 0.0 CBC Comment DIFF FINAL Differential Comment Sodium Level 134 Potassium Level 3.7 Chloride Level 99 Carbon Dioxide Level 21.8 Anion Gap 13 Blood Urea Nitrogen 23 Creatinine 0.98 Estimat Glomerular Filtration 55 Rate Random Glucose 141 Lactic Acid Level 2.4 1.2 Calcium Level 9.5 Total Bilirubin 0.7 Aspartate Amino Transf 27 (AST/SGOT) Alanine Aminotransferase 24 (ALT/SGPT) Alkaline Phosphatase 83 Total Protein 7.2 Albumin 4.0 Lipase 159 Prothrombin Time 10.4 Prothromb Time International 0.9 Ratio Activated Partial 21.7 Thromboplast Time Total Creatine Kinase 164 Creatine Kinase MB 2.0 Troponin I LESS THAN 0.02 Urine Color YELLOW Urine Turbidity HAZY Urine pH 8.0 Urine Specific [place] 1.012 Urine Protein NEG Urine Glucose (UA) NEG Urine Ketones 40 Urine Occult Blood NEG Urine Nitrite NEG Urine Bilirubin NEG Urine Urobilinogen LESS THAN 2.0 Urine Leukocyte Esterase TRACE Urine WBC 3 Urine Amorphous Sediment OCC Microscopic Urinalysis Comment CULT NOT INDICATED Result Diagram: 08/17/16221408/17/162214 Imaging Last Impressions Abdomen/Pelvis CT 08/18/162244 Signed Impressions: Service Date/Time: Thursday, August 18, 2016 01:26 - CONCLUSION: 1. Dilated loops of small bowel with air-fluid levels suggest small bowel obstruction or dynamic ileus. No transition point or cause for the obstruction seen. 2. Dilation of the common bile duct and pancreatic duct down to the ampulla suggests possible ampullary mass. No stones seen. Recommend direct visualization with ERCP. 3. There is a 2 cm soft tissue density in the left retroperitoneum which probably represents proximal loop of small bowel the junction of the duodenum and jejunum. However, the location and density would also be consistent with a splenic artery aneurysm or an exophytic mass arising from the body of the pancreas. Jones Jj MD Septic Shock Reassessment Heart: Regular rate and rhythm Lungs: Clear Skin: Warm Peripheral Pulses: Bounding Right Radial Bounding Left Radial Bounding Right Popliteal Bounding Left Popliteal Bounding Right Dorsalis Pedis Bounding Left Dorsalis Pedis Bounding Right Posterior Tibial Bounding Left Posterior Tibial Assessment and Plan Problem List: (1) Small bowel obstruction Status: Acute Plan: - Pt admitted with acute onset of abd pain and nausea. - CT Abd/pelvis (08/17) --> Dilated loops of small bowel with air-fluid levels suggest small bowel obstruction or dynamic ileus. No transition point or cause for the obstruction seen. Dilation of the common bile duct and pancreatic duct down to the ampulla suggests possible ampullary mass. No stones seen. There is a 2 cm soft tissue density in the left retroperitoneum which probably represents proximal loop of small bowel the junction of the duodenum and jejunum. However, the location and density would also be consistent with a splenic artery aneurysm or an exophytic mass arising from the body of the pancreas. - GI has been consulted. - Pt is NPO for bowel rest - Pt had NGT placed with 1.5 L of clear/reddish aspirate out in the ER - Cont. NGT to low intermittent suction. - IVF - MRI Abdomen has been ordered - LFTs are all stable. - Pt may need further evaluation with ERCP, await GI recommendations - Monitor labs and clinical status closely - PRN BP control with NPO status - KUB IN AM - Supportive care - DVT prophylaxis (2) Abnormal CT scan Status: Acute Plan: - See above. (3) HTN (hypertension) Status: Chronic Plan: - Hold pts home medication of Telmisartan 80mg po daily with NPO status - PRN Vasotec (4) Hyperlipidemia Status: Chronic Plan: - Hold home meds for now - Resume when able to take po (5) Hypothyroidism Status: Chronic Plan: - Hold home meds, resume when taking po (6) Anxiety Status: Chronic Assessment and Plan Patient examined. Assessment and plan formulated with Nayla Kauffman PA-C. I agree with the above. Physician Certification 2 Midnight Certification Type: Admission for Inpatient Services Order for Inpatient Services The services are ordered in accordance with Medicare regulations or non- Medicare payer requirements, as applicable. In the case of services not specified as inpatient-only, they are appropriately provided as inpatient services in accordance with the 2-midnight benchmark. Estimated LOS (days): 3 3 days is the estimated time the patient will need to remain in the hospital, assuming treatment plan goals are met and no additional complications. Post-Hospital Plan: Not yet determined Nayla Kauffman Aug 18, 2016 09:11 Samuel Chopra DO Aug 24, 2016 20:56
[2016-08-18] MEDS: ENALAPRILAT 1.25 MG/ML VIAL IV PUSH PRN (09:19)
--- NOTE | 2016-08-18 10:10 | RADRPT ---
EXAM DATE/TIME: 08/18/2016 08:31 [facility] COMPARISON: CT ABDOMEN & PELVIS W CONTRAST, August 18, 2016, 1:26. INDICATIONS : Abnormal CT scan. Abdominal pain. CONTRAST: 16 cc Omniscan (gadodiamide) IV MEDICAL HISTORY : Hypertension. SURGICAL HISTORY : Fusion, lumbar. ENCOUNTER: Initial ACUITY: 1 day PAIN SCORE: 4/10 LOCATION: Abdomen. TECHNIQUE: Multiplanar, multisequence magnetic resonance imaging of the abdomen was performed without and with i ntravenous contrast. FINDINGS: LIVER: Normal size with normal signal intensity. No lesion is identified. Portal vein is within normal limi ts. BILIARY: There is no intrahepatic bile duct dilatation. Common bile duct measures up to 6 mm distally. No dist al obstructing process is appreciated. Gallbladder contains no stones. SPLEEN: Within normal limits. PANCREAS: No mass is visualized. Main pancreatic duct is at the upper limits for normal in size measuring 4 mm in the head. ADRENALS: Within normal limits. KIDNEYS: Normal size and signal intensity. There is no hydronephrosis or mass. OTHER: Aorta is nonaneurysmal. There is no lymphadenopathy. No ampullary region mass is appreciated. There a re persistent abnormally dilated loops of proximal to mid small bowel with decompressed distal ileum. Dilated bowel measures up to 3.5 cm. Stomach is distended with fluid. There is mesenteric edema and a small volume of free fluid in the pelvis. CONCLUSION: 1. No pancreas mass is visualized. The finding described near the tail of the pancreas on recent CT r epresents normal bowel. 2. The common bile duct and pancreatic duct are at the upper limits for normal in size but no definit e obstructing process is seen. 3. Abnormal dilated small bowel with transition point in the mid to distal ileum. There is also mesen teric edema and free fluid in the pelvis. Findings are diagnostic of a small bowel obstruction. No sp ecific cause for the obstruction is identified. Zack Monroy MD on August 18, 2016 at 10:00 Board Certified Radiologist. This report was verified electronically.
[2016-08-18] MEDS: ONDANSETRON HCL 4 MG/2 ML VIAL IV PUSH PRN ×3 (10:37→22:10)
[2016-08-18] MEDS: HYDROmorphone HCL PF 1 MG/ML VIAL IV PUSH PRN ×3 (12:26→22:52)
--- NOTE | 2016-08-18 15:48 | PD.CONS ---
General Surgery Consult Gen. surgery consultation: The patient is a 81-year-old lady who is very alert and oriented. She is able to relate that she was doing well until yesterday evening after dinner when she began experiencing significant cramping abdominal pain. She took a couple of Gas-X pills without resolution. She subsequently came to the emergency department for evaluation. CT scan at that time showed possible small bowel obstruction and also indicated concern regarding possible dilatation of the common bile duct and pancreatic tumor. MR scan and subsequent to that failed to reveal any biliarypancreatic disease. A transition point was seen in the ileum suggestive of a small bowel obstruction. Since placement of the nasogastric tube, the patient has has slight improvement in her pain but still requires pain medications. She has not passed any flatus since admission. Past medical history including family history, social history, and review of systems, as well as medications is well documented in the remainder of her chart. Of note, she has had a previous appendectomy and total abdominal hysterectomy. Physical exam: LUNGS: Clear HEART: Regular rate and rhythm ABDOMEN: The abdomen is soft and nondistended. There is no tympany. There is minimal tenderness on the right side to deep palpation but there is actually no guarding or rebound tenderness anywhere. Bowel sounds are somewhat hyperactive. Laboratory Tests Test 08/17/16 08/17/16 08/18/16 08/18/16 22:15 23:59 05:36 10:42 White Blood Count 9.0 TH/MM3 Red Blood Count 4.98 MIL/MM3 Hemoglobin 15.5 GM/DL Hematocrit 44.7 % Mean Corpuscular Volume 89.8 FL Mean Corpuscular Hemoglobin 31.1 PG Mean Corpuscular Hemoglobin 34.6 % Concent Red Cell Distribution Width 13.4 % Platelet Count 251 TH/MM3 Mean Platelet Volume 9.8 FL Neutrophils (%) (Auto) 72.3 % Lymphocytes (%) (Auto) 23.4 % Monocytes (%) (Auto) 3.7 % Eosinophils (%) (Auto) 0.1 % Basophils (%) (Auto) 0.5 % Neutrophils # (Auto) 6.5 TH/MM3 Lymphocytes # (Auto) 2.1 TH/MM3 Monocytes # (Auto) 0.3 TH/MM3 Eosinophils # (Auto) 0.0 TH/MM3 Basophils # (Auto) 0.0 TH/MM3 CBC Comment DIFF FINAL Differential Comment Sodium Level 134 MEQ/L Potassium Level 3.7 MEQ/L Chloride Level 99 MEQ/L Carbon Dioxide Level 21.8 MEQ/L Anion Gap 13 MEQ/L Blood Urea Nitrogen 23 MG/DL Creatinine 0.98 MG/DL Estimat Glomerular Filtration 55 ML/MIN Rate Random Glucose 141 MG/DL Lactic Acid Level 2.4 mmol/L 1.2 mmol/L Calcium Level 9.5 MG/DL Total Bilirubin 0.7 MG/DL Aspartate Amino Transf 27 U/L (AST/SGOT) Alanine Aminotransferase 24 U/L (ALT/SGPT) Alkaline Phosphatase 83 U/L Total Protein 7.2 GM/DL Albumin 4.0 GM/DL Lipase 159 U/L Prothrombin Time 10.4 SEC Prothromb Time International 0.9 RATIO Ratio Activated Partial 21.7 SEC Thromboplast Time Total Creatine Kinase 164 U/L Creatine Kinase MB 2.0 NG/ML Troponin I LESS THAN 0.02 NG/ML Urine Color YELLOW Urine Turbidity HAZY Urine pH 8.0 Urine Specific [place] 1.012 Urine Protein NEG mg/dL Urine Glucose (UA) NEG mg/dL Urine Ketones 40 mg/dL Urine Occult Blood NEG Urine Nitrite NEG Urine Bilirubin NEG Urine Urobilinogen LESS THAN 2.0 MG/DL Urine Leukocyte Esterase TRACE Urine WBC 3 /hpf Urine Amorphous Sediment OCC Microscopic Urinalysis Comment CULT NOT INDICATED Tumor Marker Alpha Fetoprotein 2.2 NG/ML Carcinoembryonic Antigen 2.2 NG/ML CA 19-9 Antigen 37.7 U/ML Last 24 hours Impressions Abdomen/Pelvis CT 08/18/16 2245 Signed Impressions: Service Date/Time: Thursday, August 18, 2016 01:26 - CONCLUSION: 1. Dilated loops of small bowel with air-fluid levels suggest small bowel obstruction or dynamic ileus. No transition point or cause for the obstruction seen. 2. Dilation of the common bile duct and pancreatic duct down to the ampulla suggests possible ampullary mass. No stones seen. Recommend direct visualization with ERCP. 3. There is a 2 cm soft tissue density in the left retroperitoneum which probably represents proximal loop of small bowel the junction of the duodenum and jejunum. However, the location and density would also be consistent with a splenic artery aneurysm or an exophytic mass arising from the body of the pancreas. Jones Jj MD Abdomen MRI 08/18/16 0000 Signed Impressions: Service Date/Time: Thursday, August 18, 2016 08:31 - CONCLUSION: 1. No pancreas mass is visualized. The finding described near the tail of the pancreas on recent CT represents normal bowel. 2. The common bile duct and pancreatic duct are at the upper limits for normal in size but no definite obstructing process is seen. 3. Abnormal dilated small bowel with transition point in the mid to distal ileum. There is also mesenteric edema and free fluid in the pelvis. Findings are diagnostic of a small bowel obstruction. No specific cause for the obstruction is identified. Zack Monroy MD IMPRESSION: A 81-year-old lady with 2 previous abdominal procedures, now with high-grade partial small bowel obstruction. She has no evidence of peritonitis or compromised bowel at this time. Plan: In view of the fact that she is put out more than 500 mL's of gastric fluid since the time of her admission, the nasogastric tube will be left in place and repeat laps as well as flat and upright abdominal films will be obtained in the morning. No surgical procedure is necessary at this time, but as I told the patient and her , surgery may be necessary in the future. I will follow her with you. Cecilio Read MD Aug 18, 2016 15:48
[2016-08-19] VITALS (7 sets, daily range): BP systolic 127–174; BP diastolic 64–89; PULSE 69–90; RESP 14–18; TEMP 97–98.7; O2SAT 94–98
[2016-08-19] MEDS: ONDANSETRON HCL 4 MG/2 ML VIAL IV PUSH PRN ×4 (03:48→21:25)
[2016-08-19] MEDS: HYDROmorphone HCL PF 1 MG/ML VIAL IV PUSH PRN ×4 (04:28→22:12)
[2016-08-19 08:25] LABS: AUTOMATED NEUTROPHIL # 5.8 TH/MM3 (1.8-7.7); BASOPHIL % 0.5 % (0.0-2.0); EOSINOPHIL % 0.2 % (0.0-4.0); HEMATOCRIT 46.4 % (35.0-46.0); HEMO FLAGS DIFF FINAL; LYMPH % 23.7 % (9.0-44.0); MEAN CELL VOLUME 90.3 FL (80.0-100.0); MEAN CORPUSCULAR HGB CONC 34.4 % (32.0-36.0); NEUT % 67.6 % (16.0-70.0); PLATELET COUNT 244 TH/MM3 (150-450); RED BLOOD COUNT 5.14 MIL/MM3 (4.00-5.30); RED CELL DISTRIBUTION WIDTH 13.8 % (11.6-17.2); WHITE BLOOD COUNT 8.6 TH/MM3 (4.0-11.0)
[2016-08-19] MEDS: ENALAPRILAT 1.25 MG/ML VIAL IV PUSH PRN (08:47)
[2016-08-19] MEDS: SODIUM CHLORIDE 0.9% FLUSH 5 ML FLUSH FLUSH SCH ×2 (08:48→20:21)
[2016-08-19 09:14] LABS: ALKALINE PHOSPHATASE 77 U/L (45-117); ALT (GPT) 19 U/L (10-53); ANION GAP 9 MEQ/L (5-15); AST (GOT) 17 U/L (15-37); BICARBONATE 24.7 MEQ/L (21.0-32.0); BLOOD UREA NITROGEN 14 MG/DL (7-18); CHLORIDE 101 MEQ/L (98-107); GLOMERULAR FILTRATION RATE 73 ML/MIN (>89); POTASSIUM 3.8 MEQ/L (3.5-5.1); SODIUM (NA) 135 MEQ/L (136-145); TOTAL BILIRUBIN ADULT 0.8 MG/DL (0.2-1.0)
[2016-08-19] MEDS: NS + KCL 20 MEQ INJ 1,000 ML IV SCH ×2 (09:15→21:26)
--- NOTE | 2016-08-19 09:33 | RADRPT ---
EXAM DATE/TIME: 08/19/2016 09:17 [facility] COMPARISON: MRI ABDOMEN W & W/O CONTRAST, August 18, 2016, 8:31. CT ABDOMEN & PELVIS W CONTRAST, August 18 17, 1:26. INDICATIONS : Abdominal pain. Evaluate for obstruction. MEDICAL HISTORY : Gastroesophageal reflux disease. Hypertension. Hernia, hiatal. SURGICAL HISTORY : Appendectomy. Hysterectomy. Fusion, lumbar. Laminectomy. ENCOUNTER: Initial ACUITY: 1 day PAIN SCORE: 5/10 LOCATION: Abdomen. FINDINGS: Supine and upright views of the abdomen demonstrate dilated small bowel measuring up to 4.4 cm and de monstrating air-fluid levels. There is some colon gas and no rectal gas present. Nasogastric tube tip is in the fundal aspect of the stomach. No organomegaly is appreciated. Spinal hardware is present a t L5-S1. Visualized lung bases demonstrate no acute finding. CONCLUSION: Persistent abnormally dilated small bowel with air fluid level suspicious for some degree of small sarah wel obstruction. The findings appear similar to the barbering teacher view from yesterday's CT. Zack Monroy MD on August 19, 2016 at 9:30 Board Certified Radiologist. This report was verified electronically.
--- NOTE | 2016-08-19 10:47 | HHI.PR ---
Subjective Remarks Pt reports that she feels that her abdomen may be more distended today No flatus Abd pain is controlled with pain meds Pt has recorded 550mL of output from her NGT overnight Objective Vitals Vital Signs Date Time Temp Pulse Resp B/P Pulse Ox O2 Delivery O2 Flow Rate FiO2 08/19/16 08:00 97.8 80 16 168/89 96 08/19/16 04:00 97.9 76 16 161/86 95 08/19/16 00:00 98.7 69 16 174/80 95 08/18/16 20:00 97.1 70 16 153/81 97 08/18/16 16:00 98.7 73 16 162/82 97 08/18/16 11:00 98.1 70 16 161/78 99 08/18/16 08/18/16 08/19/16 15:00 23:00 07:00 Intake Total 0 ml 551 ml 1282 ml Output Total 600 ml 550 ml Balance 0 ml -49 ml 732 ml Intake Oral 0 ml 0 ml 0 ml IV Total 551 ml 1282 ml Output Urine Total 200 ml 400 ml Gastric Drainage Total 400 ml 150 ml Result Diagram: 08/19/1615 08/19/16714 Other Results Laboratory Tests Test 08/17/16 08/17/16 08/18/16 08/18/16 22:15 23:59 05:36 10:42 White Blood Count 9.0 TH/MM3 Red Blood Count 4.98 MIL/MM3 Hemoglobin 15.5 GM/DL Hematocrit 44.7 % Mean Corpuscular Volume 89.8 FL Mean Corpuscular Hemoglobin 31.1 PG Mean Corpuscular Hemoglobin 34.6 % Concent Red Cell Distribution Width 13.4 % Platelet Count 251 TH/MM3 Mean Platelet Volume 9.8 FL Neutrophils (%) (Auto) 72.3 % Lymphocytes (%) (Auto) 23.4 % Monocytes (%) (Auto) 3.7 % Eosinophils (%) (Auto) 0.1 % Basophils (%) (Auto) 0.5 % Neutrophils # (Auto) 6.5 TH/MM3 Lymphocytes # (Auto) 2.1 TH/MM3 Monocytes # (Auto) 0.3 TH/MM3 Eosinophils # (Auto) 0.0 TH/MM3 Basophils # (Auto) 0.0 TH/MM3 CBC Comment DIFF FINAL Differential Comment Sodium Level 134 MEQ/L Potassium Level 3.7 MEQ/L Chloride Level 99 MEQ/L Carbon Dioxide Level 21.8 MEQ/L Anion Gap 13 MEQ/L Blood Urea Nitrogen 23 MG/DL Creatinine 0.98 MG/DL Estimat Glomerular Filtration 55 ML/MIN Rate Random Glucose 141 MG/DL Lactic Acid Level 2.4 mmol/L 1.2 mmol/L Calcium Level 9.5 MG/DL Total Bilirubin 0.7 MG/DL Aspartate Amino Transf 27 U/L (AST/SGOT) Alanine Aminotransferase 24 U/L (ALT/SGPT) Alkaline Phosphatase 83 U/L Total Protein 7.2 GM/DL Albumin 4.0 GM/DL Lipase 159 U/L Prothrombin Time 10.4 SEC Prothromb Time International 0.9 RATIO Ratio Activated Partial 21.7 SEC Thromboplast Time Total Creatine Kinase 164 U/L Creatine Kinase MB 2.0 NG/ML Troponin I LESS THAN 0.02 NG/ML Urine Color YELLOW Urine Turbidity HAZY Urine pH 8.0 Urine Specific [place] 1.012 Urine Protein NEG mg/dL Urine Glucose (UA) NEG mg/dL Urine Ketones 40 mg/dL Urine Occult Blood NEG Urine Nitrite NEG Urine Bilirubin NEG Urine Urobilinogen LESS THAN 2.0 MG/DL Urine Leukocyte Esterase TRACE Urine WBC 3 /hpf Urine Amorphous Sediment OCC Microscopic Urinalysis Comment CULT NOT INDICATED Tumor Marker Alpha Fetoprotein 2.2 NG/ML Carcinoembryonic Antigen 2.2 NG/ML CA 19-9 Antigen 37.7 U/ML Test 08/19/16 07:15 White Blood Count 8.6 TH/MM3 Red Blood Count 5.14 MIL/MM3 Hemoglobin 15.9 GM/DL Hematocrit 46.4 % Mean Corpuscular Volume 90.3 FL Mean Corpuscular Hemoglobin 31.0 PG Mean Corpuscular Hemoglobin 34.4 % Concent Red Cell Distribution Width 13.8 % Platelet Count 244 TH/MM3 Mean Platelet Volume 9.9 FL Neutrophils (%) (Auto) 67.6 % Lymphocytes (%) (Auto) 23.7 % Monocytes (%) (Auto) 8.0 % Eosinophils (%) (Auto) 0.2 % Basophils (%) (Auto) 0.5 % Neutrophils # (Auto) 5.8 TH/MM3 Lymphocytes # (Auto) 2.0 TH/MM3 Monocytes # (Auto) 0.7 TH/MM3 Eosinophils # (Auto) 0.0 TH/MM3 Basophils # (Auto) 0.0 TH/MM3 CBC Comment DIFF FINAL Differential Comment Sodium Level 135 MEQ/L Potassium Level 3.8 MEQ/L Chloride Level 101 MEQ/L Carbon Dioxide Level 24.7 MEQ/L Anion Gap 9 MEQ/L Blood Urea Nitrogen 14 MG/DL Creatinine 0.76 MG/DL Estimat Glomerular Filtration 73 ML/MIN Rate Random Glucose 113 MG/DL Calcium Level 8.4 MG/DL Total Bilirubin 0.8 MG/DL Aspartate Amino Transf 17 U/L (AST/SGOT) Alanine Aminotransferase 19 U/L (ALT/SGPT) Alkaline Phosphatase 77 U/L Total Protein 6.3 GM/DL Albumin 3.2 GM/DL Imaging Last Impressions Abdomen X-Ray 08/19/16 0800 Signed Impressions: Service Date/Time: Friday, August 19, 2016 09:17 - CONCLUSION: Persistent abnormally dilated small bowel with air fluid level suspicious for some degree of small bowel obstruction. The findings appear similar to the marketing team lead view from yesterday's CT. Zack Monroy MD Abdomen/Pelvis CT 08/18/16 2245 Signed Impressions: Service Date/Time: Thursday, August 18, 2016 01:26 - CONCLUSION: 1. Dilated loops of small bowel with air-fluid levels suggest small bowel obstruction or dynamic ileus. No transition point or cause for the obstruction seen. 2. Dilation of the common bile duct and pancreatic duct down to the ampulla suggests possible ampullary mass. No stones seen. Recommend direct visualization with ERCP. 3. There is a 2 cm soft tissue density in the left retroperitoneum which probably represents proximal loop of small bowel the junction of the duodenum and jejunum. However, the location and density would also be consistent with a splenic artery aneurysm or an exophytic mass arising from the body of the pancreas. Jones Jj MD Abdomen MRI 08/18/16 0000 Signed Impressions: Service Date/Time: Thursday, August 18, 2016 08:31 - CONCLUSION: 1. No pancreas mass is visualized. The finding described near the tail of the pancreas on recent CT represents normal bowel. 2. The common bile duct and pancreatic duct are at the upper limits for normal in size but no definite obstructing process is seen. 3. Abnormal dilated small bowel with transition point in the mid to distal ileum. There is also mesenteric edema and free fluid in the pelvis. Findings are diagnostic of a small bowel obstruction. No specific cause for the obstruction is identified. Zack Monroy MD Objective Remarks General: NAD, AAOx3 Chest: CTA bilaterally Cardiac: Regular Abd: Hyperactive BS, soft, mildly distended, diffusely tender Ext: No edema A/P Problem List: (1) Small bowel obstruction Status: Acute Plan: - Pt admitted with acute onset of abd pain and nausea. - CT Abd/pelvis (08/17) --> Dilated loops of small bowel with air-fluid levels suggest small bowel obstruction or dynamic ileus. No transition point or cause for the obstruction seen. Dilation of the common bile duct and pancreatic duct down to the ampulla suggests possible ampullary mass. No stones seen. There is a 2 cm soft tissue density in the left retroperitoneum which probably represents proximal loop of small bowel the junction of the duodenum and jejunum. However, the location and density would also be consistent with a splenic artery aneurysm or an exophytic mass arising from the body of the pancreas. - GI has been consulted. - Pt is NPO for bowel rest - Pt had NGT placed with 1.5 L of clear/reddish aspirate out in the ER - Cont. NGT to LIWS - MRI Abdomen (08/18) --> No pancreas mass is visualized. The finding described near the tail of the pancreas on recent CT represents normal bowel. The common bile duct and pancreatic duct are at the upper limits for normal in size but no definite obstructing process is seen. Abnormal dilated small bowel with transition point in the mid to distal ileum. There is also mesenteric edema and free fluid in the pelvis. Findings are diagnostic of a small bowel obstruction. No specific cause for the obstruction is identified. - General Surgery consulted. No plans for surgery at this point. - Pt has had out about 550mL since 08/18 - Cont. IVF - KUB (08/19) --> Persistent abnormally dilated small bowel with air fluid level suspicious for some degree of small bowel obstruction. - Monitor labs and clinical status closely - PRN BP control with NPO status - KUB IN AM - Supportive care - DVT prophylaxis (2) Abnormal CT scan Status: Acute Plan: - See above. - LFTs are all stable. - Pt may need further evaluation with ERCP, once stabilized from her SBO to further evaluate CT scan findings. (3) HTN (hypertension) Status: Chronic Plan: - Hold pts home medication of Telmisartan 80mg po daily with NPO status - PRN Vasotec (4) Hyperlipidemia Status: Chronic Plan: - Hold home meds for now - Resume when able to take po (5) Hypothyroidism Status: Chronic Plan: - Hold home meds, resume when taking po (6) Anxiety Status: Chronic Assessment and Plan Patient examined. Assessment and plan formulated with Nayla Kauffman PA-C. I agree with the above. Nayla Kauffman Aug 19, 2016 10:47 Samuel Chopra DO Aug 24, 2016 20:55
--- NOTE | 2016-08-19 14:18 | HHI.GIFU ---
GI Follow-up Note Consult Follow-up Subjective: Patient laying in bed comfortably, no new complaints except no BM, no flatus Objective: PHYSICAL EXAMINATION: Vitals signs stable No fever HEENT: Pupils round and reactive to light; normocephalic; atraumatic; no jaundice. Throat is clear. NECK: Neck is supple, no JVD, no lymphadenopathy. CHEST: Chest is clear to auscultation and percussion. CARDIAC: Regular rate and rhythm with no murmur gallop or rubs. ABDOMEN: Soft, nondistended, nontender; no hepatosplenomegaly; bowel sounds are present in all four quadrants. EXTREMITIES: No clubbing, cyanosis, or edema. SKIN: Normal; no rash; no jaundice. MACHINE STONE POLISHER APPRENTICE: No focal deficits; alert and oriented times three. Available Data (labs, X- Rays, Procedues) : Last Impressions Abdomen X-Ray 08/19/16 0800 Signed Impressions: Service Date/Time: Friday, August 19, 2016 09:17 - CONCLUSION: Persistent abnormally dilated small bowel with air fluid level suspicious for some degree of small bowel obstruction. The findings appear similar to the purchase order checker view from yesterday's CT. Zack Monroy MD Abdomen/Pelvis CT 08/18/16 2245 Signed Impressions: Service Date/Time: Thursday, August 18, 2016 01:26 - CONCLUSION: 1. Dilated loops of small bowel with air-fluid levels suggest small bowel obstruction or dynamic ileus. No transition point or cause for the obstruction seen. 2. Dilation of the common bile duct and pancreatic duct down to the ampulla suggests possible ampullary mass. No stones seen. Recommend direct visualization with ERCP. 3. There is a 2 cm soft tissue density in the left retroperitoneum which probably represents proximal loop of small bowel the junction of the duodenum and jejunum. However, the location and density would also be consistent with a splenic artery aneurysm or an exophytic mass arising from the body of the pancreas. Jones Jj MD Abdomen MRI 08/18/16 0000 Signed Impressions: Service Date/Time: Thursday, August 18, 2016 08:31 - CONCLUSION: 1. No pancreas mass is visualized. The finding described near the tail of the pancreas on recent CT represents normal bowel. 2. The common bile duct and pancreatic duct are at the upper limits for normal in size but no definite obstructing process is seen. 3. Abnormal dilated small bowel with transition point in the mid to distal ileum. There is also mesenteric edema and free fluid in the pelvis. Findings are diagnostic of a small bowel obstruction. No specific cause for the obstruction is identified. Zack Monroy MD Laboratory Tests Test 08/17/16 08/17/16 08/18/16 08/18/16 22:15 23:59 05:36 10:42 White Blood Count 9.0 TH/MM3 Red Blood Count 4.98 MIL/MM3 Hemoglobin 15.5 GM/DL Hematocrit 44.7 % Mean Corpuscular Volume 89.8 FL Mean Corpuscular Hemoglobin 31.1 PG Mean Corpuscular Hemoglobin 34.6 % Concent Red Cell Distribution Width 13.4 % Platelet Count 251 TH/MM3 Mean Platelet Volume 9.8 FL Neutrophils (%) (Auto) 72.3 % Lymphocytes (%) (Auto) 23.4 % Monocytes (%) (Auto) 3.7 % Eosinophils (%) (Auto) 0.1 % Basophils (%) (Auto) 0.5 % Neutrophils # (Auto) 6.5 TH/MM3 Lymphocytes # (Auto) 2.1 TH/MM3 Monocytes # (Auto) 0.3 TH/MM3 Eosinophils # (Auto) 0.0 TH/MM3 Basophils # (Auto) 0.0 TH/MM3 CBC Comment DIFF FINAL Differential Comment Sodium Level 134 MEQ/L Potassium Level 3.7 MEQ/L Chloride Level 99 MEQ/L Carbon Dioxide Level 21.8 MEQ/L Anion Gap 13 MEQ/L Blood Urea Nitrogen 23 MG/DL Creatinine 0.98 MG/DL Estimat Glomerular Filtration 55 ML/MIN Rate Random Glucose 141 MG/DL Lactic Acid Level 2.4 mmol/L 1.2 mmol/L Calcium Level 9.5 MG/DL Total Bilirubin 0.7 MG/DL Aspartate Amino Transf 27 U/L (AST/SGOT) Alanine Aminotransferase 24 U/L (ALT/SGPT) Alkaline Phosphatase 83 U/L Total Protein 7.2 GM/DL Albumin 4.0 GM/DL Lipase 159 U/L Prothrombin Time 10.4 SEC Prothromb Time International 0.9 RATIO Ratio Activated Partial 21.7 SEC Thromboplast Time Total Creatine Kinase 164 U/L Creatine Kinase MB 2.0 NG/ML Troponin I LESS THAN 0.02 NG/ML Urine Color YELLOW Urine Turbidity HAZY Urine pH 8.0 Urine Specific [place] 1.012 Urine Protein NEG mg/dL Urine Glucose (UA) NEG mg/dL Urine Ketones 40 mg/dL Urine Occult Blood NEG Urine Nitrite NEG Urine Bilirubin NEG Urine Urobilinogen LESS THAN 2.0 MG/DL Urine Leukocyte Esterase TRACE Urine WBC 3 /hpf Urine Amorphous Sediment OCC Microscopic Urinalysis Comment CULT NOT INDICATED Tumor Marker Alpha Fetoprotein 2.2 NG/ML Carcinoembryonic Antigen 2.2 NG/ML CA 19-9 Antigen 37.7 U/ML Test 08/19/16 07:15 White Blood Count 8.6 TH/MM3 Red Blood Count 5.14 MIL/MM3 Hemoglobin 15.9 GM/DL Hematocrit 46.4 % Mean Corpuscular Volume 90.3 FL Mean Corpuscular Hemoglobin 31.0 PG Mean Corpuscular Hemoglobin 34.4 % Concent Red Cell Distribution Width 13.8 % Platelet Count 244 TH/MM3 Mean Platelet Volume 9.9 FL Neutrophils (%) (Auto) 67.6 % Lymphocytes (%) (Auto) 23.7 % Monocytes (%) (Auto) 8.0 % Eosinophils (%) (Auto) 0.2 % Basophils (%) (Auto) 0.5 % Neutrophils # (Auto) 5.8 TH/MM3 Lymphocytes # (Auto) 2.0 TH/MM3 Monocytes # (Auto) 0.7 TH/MM3 Eosinophils # (Auto) 0.0 TH/MM3 Basophils # (Auto) 0.0 TH/MM3 CBC Comment DIFF FINAL Differential Comment Sodium Level 135 MEQ/L Potassium Level 3.8 MEQ/L Chloride Level 101 MEQ/L Carbon Dioxide Level 24.7 MEQ/L Anion Gap 9 MEQ/L Blood Urea Nitrogen 14 MG/DL Creatinine 0.76 MG/DL Estimat Glomerular Filtration 73 ML/MIN Rate Random Glucose 113 MG/DL Calcium Level 8.4 MG/DL Total Bilirubin 0.8 MG/DL Aspartate Amino Transf 17 U/L (AST/SGOT) Alanine Aminotransferase 19 U/L (ALT/SGPT) Alkaline Phosphatase 77 U/L Total Protein 6.3 GM/DL Albumin 3.2 GM/DL Allergies Coded Allergies Type Severity Reaction Last Updated Verified Codeine Allergy Severe RASH 08/17/16 No Cortisone Allergy Severe INCREASED HEART RATE; FLUSHING 08/17/16 Yes Penicillin Allergy Severe RASH 08/17/16 Yes Active Scripts Medications Dose Route/Sig Days Date Category Mirtazapine 30 Mg Tab 30 Mg PO HS 06/12/16 Reported Tramadol (Tramadol HCl) 50 Mg Tab 50 Mg PO Q6HR 06/12/16 Reported Telmisartan 80 Mg Tab 80 Mg PO DAILY 06/12/16 Reported Probiotic (Lactobacillus Acidophilus) 1 Cap Cap 1 Cap PO TIDAC 06/12/16 Reported Multi-Vitamin (Multiple Vitamin) 1 Tab Tab 1 Tab PO DAILY 06/12/16 Reported Lovastatin 20 Mg Tab 20 Mg PO HS 06/12/16 Reported Levothyroxine (Levothyroxine Sodium) 50 Mcg Tab 50 Mcg PO DAILY 06/12/16 Reported Calcium 600+D (Calcium Carbonate-Vitamin D) 600-200 Mg-Unit Tab 1 Tab PO BID 06/12/16 Reported ASSESSMENT/PLAN: Seen and exmined, still no BM, Feels the same as yesterday. KUB no change. Dr. Read on case. Continue NG to L.I.S. repeat kub in am. It was a pleasure seeing Teri Clements. Thank you for this consult. Entered by: Juanita Zee MD Aug 19, 2016 14:18
--- NOTE | 2016-08-19 16:47 | HHI.PR ---
Subjective Subjective Notes The patient feels about the same as she did yesterday. She has gone long periods of time without IV pain medicine, however she does still have crampy abdominal pain located in the lower abdomen essentially both sides although the right side is somewhat more tender. She has not passed any flatus nor had a bowel movement. Objective Vitals/I&O Vital Signs Date Time Temp Pulse Resp B/P Pulse Ox O2 Delivery O2 Flow Rate FiO2 08/19/16 16:00 98.1 84 16 159/84 95 08/19/16 07:30 21 Labs Laboratory Tests Test 08/19/16 07:15 White Blood Count 8.6 Red Blood Count 5.14 Hemoglobin 15.9 Hematocrit 46.4 Mean Corpuscular Volume 90.3 Mean Corpuscular Hemoglobin 31.0 Mean Corpuscular Hemoglobin 34.4 Concent Red Cell Distribution Width 13.8 Platelet Count 244 Mean Platelet Volume 9.9 Neutrophils (%) (Auto) 67.6 Lymphocytes (%) (Auto) 23.7 Monocytes (%) (Auto) 8.0 Eosinophils (%) (Auto) 0.2 Basophils (%) (Auto) 0.5 Neutrophils # (Auto) 5.8 Lymphocytes # (Auto) 2.0 Monocytes # (Auto) 0.7 Eosinophils # (Auto) 0.0 Basophils # (Auto) 0.0 CBC Comment DIFF FINAL Differential Comment Sodium Level 135 Potassium Level 3.8 Chloride Level 101 Carbon Dioxide Level 24.7 Anion Gap 9 Blood Urea Nitrogen 14 Creatinine 0.76 Estimat Glomerular Filtration 73 Rate Random Glucose 113 Calcium Level 8.4 Total Bilirubin 0.8 Aspartate Amino Transf 17 (AST/SGOT) Alanine Aminotransferase 19 (ALT/SGPT) Alkaline Phosphatase 77 Total Protein 6.3 Albumin 3.2 Radiology Last 24 hours Impressions Abdomen X-Ray 08/19/16 0800 Signed Impressions: Service Date/Time: Friday, August 19, 2016 09:17 - CONCLUSION: Persistent abnormally dilated small bowel with air fluid level suspicious for some degree of small bowel obstruction. The findings appear similar to the program clerk view from yesterday's CT. Zack Monroy MD Abdomen/Pelvis CT 08/18/16 0983 Signed Impressions: Service Date/Time: Thursday, August 18, 2016 01:26 - CONCLUSION: 1. Dilated loops of small bowel with air-fluid levels suggest small bowel obstruction or dynamic ileus. No transition point or cause for the obstruction seen. 2. Dilation of the common bile duct and pancreatic duct down to the ampulla suggests possible ampullary mass. No stones seen. Recommend direct visualization with ERCP. 3. There is a 2 cm soft tissue density in the left retroperitoneum which probably represents proximal loop of small bowel the junction of the duodenum and jejunum. However, the location and density would also be consistent with a splenic artery aneurysm or an exophytic mass arising from the body of the pancreas. Jones Jj MD Cardiovascular: Regular Lungs: Clear Narrative Exam Her abdomen is somewhat more distended today and is mildly tender in the lower abdomen without guarding or rebound. She has no tympany to percussion. A/P Assessment and Plan Impression: Small bowel obstruction which is not clinically improved since yesterday. The findings and upright abdominal films still show dilated proximal small bowel with air-fluid levels. There is no evidence of free air. Her vital signs remained stable and her laboratory work has likewise remained stable. Plan: A Gastrografin upper GI series has been ordered for tomorrow morning. If it is not therapeutic and the small bowel obstruction is not relieved, then she will most likely require surgery either tomorrow or Saturday. I informed the patient and her of that plan. Cecilio Read MD Aug 19, 2016 16:47
[2016-08-20] VITALS: BP 151/72; PULSE 80; RESP 18; TEMP 98.7; O2SAT 97
[2016-08-20] MEDS: HYDROmorphone HCL PF 1 MG/ML VIAL IV PUSH PRN ×2 (02:12→05:12)
[2016-08-20] MEDS: ONDANSETRON HCL 4 MG/2 ML VIAL IV PUSH PRN ×2 (05:08→16:14)
[2016-08-20 07:14] LABS: AUTOMATED NEUTROPHIL # 1.3 TH/MM3 (1.8-7.7); BASOPHIL % 0.5 % (0.0-2.0); EOSINOPHIL % 0.7 % (0.0-4.0); HEMATOCRIT 40.6 % (35.0-46.0); HEMO FLAGS DIFF FINAL; LYMPHOCYTE # 1.5 TH/MM3 (1.0-4.8); MEAN CORPUSCULAR HEMOGLOBIN 31.2 PG (27.0-34.0); MEAN CORPUSCULAR HGB CONC 34.3 % (32.0-36.0); MONO % 15.6 % (0.0-8.0); NEUT % 38.2 % (16.0-70.0); PLATELET COUNT 199 TH/MM3 (150-450); RED BLOOD COUNT 4.46 MIL/MM3 (4.00-5.30); WHITE BLOOD COUNT 3.3 TH/MM3 (4.0-11.0)
[2016-08-20 07:30] VITALS: BP 150/74; PULSE 91; RESP 20; TEMP 95.9; O2SAT 94
[2016-08-20 07:53] LABS: POTASSIUM 3.8 MEQ/L (3.5-5.1)
[2016-08-20] MEDS: NS + KCL 20 MEQ INJ 1,000 ML IV SCH ×2 (08:21→15:15)
[2016-08-20] MEDS: SODIUM CHLORIDE 0.9% FLUSH 5 ML FLUSH FLUSH SCH ×2 (08:21→20:45)
[2016-08-20] MEDS ORDERED: DIATRIZOATE MEGLUM/DIATRIZOATE SOD 120 ML BTL (for RAD DIAG) NG ONE (10:13)
[2016-08-20 11:50] VITALS: BP 146/89; PULSE 113; RESP 20; TEMP 95.9; O2SAT 96
--- NOTE | 2016-08-20 12:22 | RADRPT ---
EXAM DATE/TIME: 08/20/2016 00:00 COMPARISON: MRI ABDOMEN W & W/O CONTRAST, August 18, 2016, 8:31. ABDOMEN KUB ONLY, August 20, 2016, 9:07. ABD OMEN FLAT & UPRIGHT, August 19, 2016, 9:17. CT ABDOMEN & PELVIS W CONTRAST, August 18, 2016, 1:26. INDICATIONS : Lower abdominal pain, evaluate obstruction FLUORO TIME: 3.4 minutes IMAGE COUNT: 1 CONTRAST: [facility]view IMAGING TIME(S): 15 min, 30 min, 45 min, 1 hr, 1.5 hrs MEDICAL HISTORY : Hiatal hernia. Gastroesophageal reflux disease. SURGICAL HISTORY : Appendectomy. Hysterectomy. lumbar fusion ENCOUNTER: Subsequent ACUITY: 2 days PAIN SCORE: 10/10 LOCATION: Bilateral abdomen FINDINGS: Diameter was performed with introduction of water soluble contrast via nasogastric tube. Stomach is n ormal as is pyloric canal and duodenal bulb. C-loop is normal with normal folds and no evidence of ma ss. Contrast bowel throughout the small bowel into the colon and rectosigmoid bowel with no evidence of obstructing lesion or abnormality of the small bowel which is borderline with compared to the colo n and may represent a mild ileus pattern CONCLUSION: Normal upper GI. Questionable mild ileus pattern. Clyde Jacob MD on August 20, 2016 at 12:19 Board Certified Radiologist. This report was verified electronically.
--- NOTE | 2016-08-20 12:28 | RADRPT ---
EXAM DATE/TIME: 08/20/2016 09:07 [facility] COMPARISON: UGI WITH SMALL BOWEL SERIES, August 20, 2016, 0:00. ABDOMEN FLAT & UPRIGHT, August 19, 2016, 9:17. MRI ABDOMEN W & W/O CONTRAST, August 18, 2016, 8:31. CT ABDOMEN & PELVIS W CONTRAST, August 18, 2016, 1:26. INDICATIONS : Posssible bowel obstruction, abdomen pain MEDICAL HISTORY : Gastroesophageal reflux disease. Hiatal hernia. Hypertension. SURGICAL HISTORY : Appendectomy. Hysterectomy. lumbar fusion ENCOUNTER: Initial ACUITY: 2 days PAIN SCORE: 10/10 LOCATION: Bilateral abdomen FINDINGS: Prior lumbar surgery with transpedicular screws L5-S1 appreciated degenerative changes lumbar spine. Nasogastric tube is noted in the stomach. Air is noted throughout the small bowel particularly within the upper abdomen mild disproportionate relative to colon. Upper GI and small bowel the same day rev eals no intrinsic small bowel abnormality with contrast progressing into the colon. . CONCLUSION: Abnormal bowel gas pattern most suggestive of ileus Clyde Jacob MD on August 20, 2016 at 12:25 Board Certified Radiologist. This report was verified electronically.
--- NOTE | 2016-08-20 12:44 | HHI.PR ---
Subjective Remarks pt has some flatus no bm Objective Vitals heart reg lung cta abd softer/bs ext no edema Vital Signs Date Time Temp Pulse Resp B/P Pulse Ox O2 Delivery O2 Flow Rate FiO2 08/20/16 07:30 95.9 91 20 150/74 94 08/20/16 00:00 98.7 80 18 151/72 97 08/19/16 20:00 97.0 81 18 127/64 98 08/19/16 16:00 98.1 84 16 159/84 95 08/19/16 08/19/16 08/20/16 15:00 23:00 07:00 Intake Total 0 ml 0 ml Output Total 650 ml 100 ml Balance -650 ml -100 ml Intake Oral 0 ml 0 ml Output Urine Total 650 ml Gastric Drainage Total 100 ml # Voids 1 2 # Bowel Movements 0 0 0 Result Diagram: 08/20/16 0605 08/20/16 0605 Imaging Last Impressions Abdomen X-Ray 08/19/16 0800 Signed Impressions: Service Date/Time: Friday, August 19, 2016 09:17 - CONCLUSION: Persistent abnormally dilated small bowel with air fluid level suspicious for some degree of small bowel obstruction. The findings appear similar to the otorhinolaryngologist view from yesterday's CT. Zack Monroy MD Abdomen/Pelvis CT 08/18/16 2245 Signed Impressions: Service Date/Time: Thursday, August 18, 2016 01:26 - CONCLUSION: 1. Dilated loops of small bowel with air-fluid levels suggest small bowel obstruction or dynamic ileus. No transition point or cause for the obstruction seen. 2. Dilation of the common bile duct and pancreatic duct down to the ampulla suggests possible ampullary mass. No stones seen. Recommend direct visualization with ERCP. 3. There is a 2 cm soft tissue density in the left retroperitoneum which probably represents proximal loop of small bowel the junction of the duodenum and jejunum. However, the location and density would also be consistent with a splenic artery aneurysm or an exophytic mass arising from the body of the pancreas. Jones Jj MD Abdomen MRI 08/18/16 0000 Signed Impressions: Service Date/Time: Thursday, August 18, 2016 08:31 - CONCLUSION: 1. No pancreas mass is visualized. The finding described near the tail of the pancreas on recent CT represents normal bowel. 2. The common bile duct and pancreatic duct are at the upper limits for normal in size but no definite obstructing process is seen. 3. Abnormal dilated small bowel with transition point in the mid to distal ileum. There is also mesenteric edema and free fluid in the pelvis. Findings are diagnostic of a small bowel obstruction. No specific cause for the obstruction is identified. Zack Monroy MD A/P Problem List: (1) Small bowel obstruction Status: Acute Plan: - Pt admitted with acute onset of abd pain and nausea. - CT Abd/pelvis (08/17) --> Dilated loops of small bowel with air-fluid levels suggest small bowel obstruction or dynamic ileus. No transition point or cause for the obstruction seen. Dilation of the common bile duct and pancreatic duct down to the ampulla suggests possible ampullary mass. No stones seen. There is a 2 cm soft tissue density in the left retroperitoneum which probably represents proximal loop of small bowel the junction of the duodenum and jejunum. However, the location and density would also be consistent with a splenic artery aneurysm or an exophytic mass arising from the body of the pancreas. - GI has been consulted. - Pt is NPO for bowel rest - Pt had NGT placed with 1.5 L of clear/reddish aspirate out in the ER - Cont. NGT to LIWS - MRI Abdomen (08/18) --> No pancreas mass is visualized. The finding described near the tail of the pancreas on recent CT represents normal bowel. The common bile duct and pancreatic duct are at the upper limits for normal in size but no definite obstructing process is seen. Abnormal dilated small bowel with transition point in the mid to distal ileum. There is also mesenteric edema and free fluid in the pelvis. Findings are diagnostic of a small bowel obstruction. No specific cause for the obstruction is identified. Pt being followed by gen surg. cont current rx and see if she will require surgical intervention. (2) Abnormal CT scan Status: Acute Plan: - See above. - (3) HTN (hypertension) Status: Chronic Plan: - Hold pts home medication of Telmisartan 80mg po daily with NPO status - PRN Vasotec (4) Hyperlipidemia Status: Chronic Plan: - Hold home meds for now - Resume when able to take po (5) Hypothyroidism Status: Chronic Plan: - Hold home meds, resume when taking po (6) Anxiety Status: Chronic Colby Rodriguez MD Aug 20, 2016 12:44
[2016-08-20 15:50] VITALS: BP 69/159; PULSE 81; RESP 20; TEMP 95.9; O2SAT 97
--- NOTE | 2016-08-20 15:53 | HHI.PR ---
Subjective Subjective Notes The patient states she's had no further pain, nausea as she had any nausea or emesis. She has had multiple liquid bowel movements after the Gastrografin upper GI series. Objective Vitals/I&O Vital Signs Date Time Temp Pulse Resp B/P Pulse Ox O2 Delivery O2 Flow Rate FiO2 08/20/16 11:50 95.9 113 20 146/89 96 08/19/16 07:30 21 Labs Laboratory Tests Test 08/20/16 06:05 White Blood Count 3.3 Red Blood Count 4.46 Hemoglobin 13.9 Hematocrit 40.6 Mean Corpuscular Volume 91.0 Mean Corpuscular Hemoglobin 31.2 Mean Corpuscular Hemoglobin 34.3 Concent Red Cell Distribution Width 14.0 Platelet Count 199 Mean Platelet Volume 9.5 Neutrophils (%) (Auto) 38.2 Lymphocytes (%) (Auto) 45.0 Monocytes (%) (Auto) 15.6 Eosinophils (%) (Auto) 0.7 Basophils (%) (Auto) 0.5 Neutrophils # (Auto) 1.3 Lymphocytes # (Auto) 1.5 Monocytes # (Auto) 0.5 Eosinophils # (Auto) 0.0 Basophils # (Auto) 0.0 CBC Comment DIFF FINAL Differential Comment Sodium Level 139 Potassium Level 3.8 Chloride Level 106 Carbon Dioxide Level 24.0 Anion Gap 9 Blood Urea Nitrogen 21 Creatinine 0.75 Estimat Glomerular Filtration 75 Rate Random Glucose 99 Calcium Level 7.7 Magnesium Level 2.0 Radiology Last 24 hours Impressions Abdomen X-Ray 08/20/16 0600 Signed Impressions: Service Date/Time: Saturday, August 20, 2016 09:07 - CONCLUSION: Abnormal bowel gas pattern most suggestive of ileus Clyde Jacob MD Upper GI and Small Bowel X-Ray 08/20/16 0000 Signed Impressions: Service Date/Time: Saturday, August 20, 2016 00:00 - CONCLUSION: Normal upper GI. Questionable mild ileus pattern. Clyde Jacob MD Last 24 hours Impressions Abdomen X-Ray 08/19/16 0800 Signed Impressions: Service Date/Time: Friday, August 19, 2016 09:17 - CONCLUSION: Persistent abnormally dilated small bowel with air fluid level suspicious for some degree of small bowel obstruction. The findings appear similar to the porcelain mixer view from yesterday's CT. Zack Monroy MD Abdomen/Pelvis CT 08/18/16 [id number] Signed Impressions: Service Date/Time: Thursday, August 18, 2016 01:26 - CONCLUSION: 1. Dilated loops of small bowel with air-fluid levels suggest small bowel obstruction or dynamic ileus. No transition point or cause for the obstruction seen. 2. Dilation of the common bile duct and pancreatic duct down to the ampulla suggests possible ampullary mass. No stones seen. Recommend direct visualization with ERCP. 3. There is a 2 cm soft tissue density in the left retroperitoneum which probably represents proximal loop of small bowel the junction of the duodenum and jejunum. However, the location and density would also be consistent with a splenic artery aneurysm or an exophytic mass arising from the body of the pancreas. Jones Jj MD Lungs: Clear Abdomen: Non-distended, Non-tender, BS normal Extremities: No edema Narrative Exam Her abdomen is somewhat more distended today and is mildly tender in the lower abdomen without guarding or rebound. She has no tympany to percussion. A/P Assessment and Plan Impression: Currently there is no evidence for small bowel obstruction. She has had no nausea or vomiting and denies any abdominal pain. The Gastrografin upper GI series showed excellent flow through to the sigmoid colon and she has had multiple bowel movements since the end of the GI series. She might have a residual small ileus but certainly there is no bowel obstruction. Plan: I removed her nasogastric tube and am ordering a full liquid diet. As long as she tolerates a full liquids for dinner tonight, she should be able to be discharged to home tomorrow on a soft diet and advance to regular thereafter. Cecilio Read MD Aug 20, 2016 15:53
--- NOTE | 2016-08-20 16:47 | HHI.GIFU ---
Subjective Remarks States she is feeling much better. Multiple bowel movements after gastrografin. Mild abdominal discomfort, much improved (OgldmanHolly Delfinagildardo OROURKE) Objective Vitals I&O Vital Signs Date Time Temp Pulse Resp B/P Pulse Ox O2 Delivery O2 Flow Rate FiO2 08/20/16 11:50 95.9 113 20 146/89 96 08/20/16 07:30 95.9 91 20 150/74 94 08/20/16 00:00 98.7 80 18 151/72 97 08/19/16 20:00 97.0 81 18 127/64 98 I/O 08/19/16 08/19/16 08/19/16 08/20/16 08/20/16 08/20/16 07:00 15:00 23:00 07:00 15:00 23:00 Intake Total 1282 ml 0 ml 0 ml Output Total 550 ml 650 ml 100 ml Balance 732 ml -650 ml -100 ml Intake Oral 0 ml 0 ml 0 ml IV Total 1282 ml Output Urine Total 400 ml 650 ml Gastric Drainage Total 150 ml 100 ml # Voids 1 2 # Bowel Movements 0 0 0 Laboratory Laboratory Tests Test 08/20/16 06:05 White Blood Count 3.3 Red Blood Count 4.46 Hemoglobin 13.9 Hematocrit 40.6 Mean Corpuscular Volume 91.0 Mean Corpuscular Hemoglobin 31.2 Mean Corpuscular Hemoglobin 34.3 Concent Red Cell Distribution Width 14.0 Platelet Count 199 Mean Platelet Volume 9.5 Neutrophils (%) (Auto) 38.2 Lymphocytes (%) (Auto) 45.0 Monocytes (%) (Auto) 15.6 Eosinophils (%) (Auto) 0.7 Basophils (%) (Auto) 0.5 Neutrophils # (Auto) 1.3 Lymphocytes # (Auto) 1.5 Monocytes # (Auto) 0.5 Eosinophils # (Auto) 0.0 Basophils # (Auto) 0.0 CBC Comment DIFF FINAL Differential Comment Sodium Level 139 Potassium Level 3.8 Chloride Level 106 Carbon Dioxide Level 24.0 Anion Gap 9 Blood Urea Nitrogen 21 Creatinine 0.75 Estimat Glomerular Filtration 75 Rate Random Glucose 99 Calcium Level 7.7 Magnesium Level 2.0 Imaging Last Impressions Abdomen X-Ray 08/20/16 0600 Signed Impressions: Service Date/Time: Saturday, August 20, 2016 09:07 - CONCLUSION: Abnormal bowel gas pattern most suggestive of ileus Clyde Jacob MD Upper GI and Small Bowel X-Ray 08/20/16 0000 Signed Impressions: Service Date/Time: Saturday, August 20, 2016 00:00 - CONCLUSION: Normal upper GI. Questionable mild ileus pattern. Clyde Jacob MD Abdomen/Pelvis CT 08/18/16 2245 Signed Impressions: Service Date/Time: Thursday, August 18, 2016 01:26 - CONCLUSION: 1. Dilated loops of small bowel with air-fluid levels suggest small bowel obstruction or dynamic ileus. No transition point or cause for the obstruction seen. 2. Dilation of the common bile duct and pancreatic duct down to the ampulla suggests possible ampullary mass. No stones seen. Recommend direct visualization with ERCP. 3. There is a 2 cm soft tissue density in the left retroperitoneum which probably represents proximal loop of small bowel the junction of the duodenum and jejunum. However, the location and density would also be consistent with a splenic artery aneurysm or an exophytic mass arising from the body of the pancreas. Jones Jj MD Abdomen MRI 08/18/16 0000 Signed Impressions: Service Date/Time: Thursday, August 18, 2016 08:31 - CONCLUSION: 1. No pancreas mass is visualized. The finding described near the tail of the pancreas on recent CT represents normal bowel. 2. The common bile duct and pancreatic duct are at the upper limits for normal in size but no definite obstructing process is seen. 3. Abnormal dilated small bowel with transition point in the mid to distal ileum. There is also mesenteric edema and free fluid in the pelvis. Findings are diagnostic of a small bowel obstruction. No specific cause for the obstruction is identified. Zack Monroy MD Physical Exam HEENT:Normocephalic; atraumatic; no jaundice. Throat is clear. NECK: Neck is supple, no JVD, no lymphadenopathy. CHEST: CTA CARDIAC: RRR ABDOMEN: Soft, nondistended, nontender; no hepatosplenomegaly; bowel sounds are present in all four quadrants. EXTREMITIES: No clubbing, cyanosis, or edema. SKIN: Normal; no rash; no jaundice. SOFTWARE SUPPORT ANALYST: No focal deficits; alert and oriented times three. (Holly Goldman [facility]) Assessment and Plan Plan ASSESSMENT: - PSBO vs. Ileus. Abdominal pain, nausea, vomiting with abnormal imaging on CT with dilated loops of small bowel with air fluid levels to suggest small bowel obstruction or dynamic ileus. Abdomen X-Ray (08/20/16)---> Abnormal bowel gas pattern most suggestive of ileus. Upper GI and Small Bowel X-Ray (08/20/16)---> Normal upper GI. Questionable mild ileus pattern. No distention at this time. Multiple bowel movements after SBFT. Full liquids per GS. Clinically much improved. - Abnormal imaging with dilation of the common bile duct and pancreatic duct down to the ampulla suggests possible ampullary mass. No stones seen. Recommend direct visualization with ERCP. LFTS are normal. WBC 9.0. No abnormal weight loss. Of note, she does have some adenopathy on right, ant.cervical chain. She denies any recent URI symptoms. Abdomen MRI (08/18/16)---> 1. No pancreas mass is visualized. The finding described near the tail of the pancreas on recent CT represents normal bowel. 2. The common bile duct and pancreatic duct are at the upper limits for normal in size but no definite obstructing process is seen. 3. Abnormal dilated small bowel with transition point in the mid to distal ileum. There is also mesenteric edema and free fluid in the pelvis. Findings are diagnostic of a small bowel obstruction. No specific cause for the obstruction is identified. AFP 2.2, CEA 2.2, Ca19-9 37.7 - Hx Lymphocytic colitis. Not currently on meds per patient. Flexible sigmoidoscopy (12/14/14)----> diverticulosis sigmiod, descending-random biopsies, polyp rectum 5 mm cold biopsy with complete removal, retroflexed views revealed internal hemorrhoids, rectal exam revealed no abnormalities of the rectum. Pathology with no pathologic changes of duodenum biopsy, reactive gastropathy of the stomach, benign gastroesophageal junction mucosa with mild chronic inflammation of the gastric component, microscopic colitis with intraepithelial lymphocytosis and surgace epithelial injury, consistent with lymphocytic colitis. EGD (12/14/14)----> gastritis antrum, duodenitis bulb, esophagitis distal esophagus, retroflexed views revealed a small hiatal hernia. Colonoscopy (11/21/10)---> Moderate diverticulosis in the sigmoid, descending colon, medium internal hemorrhoids. PLAN: - Full liquids per GS - PPI - Monitor labs - Supportive care - ? Need for ERCP - Further recommendations to follow based on results of above - Pt seen and examined by Dr. Kingsley and myself and this note is written on her behalf (Holly Goldman) Physician Comments seen, examined agree with above eus op (Ting Kingsley MD) Holly Goldman Aug 20, 2016 16:47 Ting Kingsley MD Aug 20, 2016 18:36
[2016-08-20 20:00] VITALS: BP 137/62; PULSE 86; RESP 18; TEMP 97.7; O2SAT 96
--- NOTE | 2016-08-20 22:33 | EKG ---
Date Performed: 08/17/2016 Time Performed: 22:26:31 PTAGE: 81 years EKG: Sinus rhythm POSSIBLE LEFT ATRIAL ENLARGEMENT PROLONGED QT INTERVAL ABNORMAL ECG PREVIOUS TRACING : 08/17/2016 22.26 Compared to prior tracing no significant change DOCTOR: Travis Cosme Interpretating Date/Time 08/20/2016 22:33:16
[2016-08-21] VITALS: BP 127/55; PULSE 93; RESP 16; TEMP 98.2; O2SAT 96
[2016-08-21] MEDS: NS + KCL 20 MEQ INJ 1,000 ML IV SCH (03:39)
[2016-08-21 04:30] VITALS: BP 140/67; PULSE 80; RESP 18; TEMP 98.4; O2SAT 96
[2016-08-21 08:00] VITALS: BP 151/66; PULSE 72; RESP 20; TEMP 98.4; O2SAT 97
[2016-08-21] MEDS: SODIUM CHLORIDE 0.9% FLUSH 5 ML FLUSH FLUSH SCH (08:22)
--- NOTE | 2016-08-21 09:25 | HHI.PR ---
Subjective Remarks tolerating diet. Objective Vitals heart reg lung cta abd s/nt. bs ext no edema Vital Signs Date Time Temp Pulse Resp B/P Pulse Ox O2 Delivery O2 Flow Rate FiO2 08/21/16 08:00 98.4 72 20 151/66 97 08/21/16 04:30 98.4 80 18 140/67 96 08/21/16 00:00 98.2 93 16 127/55 96 08/20/16 20:00 97.7 86 18 137/62 96 08/20/16 15:50 95.9 81 20 69/159 97 08/20/16 11:50 95.9 113 20 146/89 96 08/20/16 08/20/16 08/21/16 15:00 23:00 07:00 Intake Total 120 ml 600 ml 240 ml Balance 120 ml 600 ml 240 ml Intake Oral 120 ml 600 ml 240 ml # Voids 2 2 # Bowel Movements 12 3 2 Result Diagram: 08/20/16 0605 08/20/16 0605 Imaging Last Impressions Abdomen X-Ray 08/19/16 0800 Signed Impressions: Service Date/Time: Friday, August 19, 2016 09:17 - CONCLUSION: Persistent abnormally dilated small bowel with air fluid level suspicious for some degree of small bowel obstruction. The findings appear similar to the legal billing analyst view from yesterday's CT. Zack Monroy MD Abdomen/Pelvis CT 08/18/16 2245 Signed Impressions: Service Date/Time: Thursday, August 18, 2016 01:26 - CONCLUSION: 1. Dilated loops of small bowel with air-fluid levels suggest small bowel obstruction or dynamic ileus. No transition point or cause for the obstruction seen. 2. Dilation of the common bile duct and pancreatic duct down to the ampulla suggests possible ampullary mass. No stones seen. Recommend direct visualization with ERCP. 3. There is a 2 cm soft tissue density in the left retroperitoneum which probably represents proximal loop of small bowel the junction of the duodenum and jejunum. However, the location and density would also be consistent with a splenic artery aneurysm or an exophytic mass arising from the body of the pancreas. Jones Jj MD Abdomen MRI 08/18/16 0000 Signed Impressions: Service Date/Time: Thursday, August 18, 2016 08:31 - CONCLUSION: 1. No pancreas mass is visualized. The finding described near the tail of the pancreas on recent CT represents normal bowel. 2. The common bile duct and pancreatic duct are at the upper limits for normal in size but no definite obstructing process is seen. 3. Abnormal dilated small bowel with transition point in the mid to distal ileum. There is also mesenteric edema and free fluid in the pelvis. Findings are diagnostic of a small bowel obstruction. No specific cause for the obstruction is identified. Zack Monroy MD A/P Problem List: (1) Small bowel obstruction Status: Acute Plan: - Pt admitted with acute onset of abd pain and nausea. - CT Abd/pelvis (08/17) --> Dilated loops of small bowel with air-fluid levels suggest small bowel obstruction or dynamic ileus. No transition point or cause for the obstruction seen. Dilation of the common bile duct and pancreatic duct down to the ampulla suggests possible ampullary mass. No stones seen. There is a 2 cm soft tissue density in the left retroperitoneum which probably represents proximal loop of small bowel the junction of the duodenum and jejunum. However, the location and density would also be consistent with a splenic artery aneurysm or an exophytic mass arising from the body of the pancreas. - GI has been consulted. - Pt is NPO for bowel rest - Pt had NGT placed with 1.5 L of clear/reddish aspirate out in the ER - MRI Abdomen (08/18) --> No pancreas mass is visualized. The finding described near the tail of the pancreas on recent CT represents normal bowel. The common bile duct and pancreatic duct are at the upper limits for normal in size but no definite obstructing process is seen. Abnormal dilated small bowel with transition point in the mid to distal ileum. There is also mesenteric edema and free fluid in the pelvis. Findings are diagnostic of a small bowel obstruction. No specific cause for the obstruction is identified. BOWELS MOVING. NGT OUT. TOLERATING FULL LIQUIDS. SHE WANTS TO GO HOME. I INSTRUCTED HER ON DIET. (2) Abnormal CT scan Status: Acute Plan: - See above. - (3) HTN (hypertension) Status: Chronic Plan: home meds (4) Hyperlipidemia Status: Chronic Plan: - home meds (5) Hypothyroidism Status: Chronic Plan: - Hold home meds, resume when taking po (6) Anxiety Status: Chronic Colby Rodriguez MD Aug 21, 2016 09:25
--- NOTE | 2016-08-21 09:26 | HHI.DCPOC ---
Discharge Care Plan Diagnosis: (1) Small bowel obstruction Goals to Promote Your Health * To prevent worsening of your condition and complications * To maintain your health at the optimal level Directions to Meet Your Goals Take your medications as prescribed Follow your dietary instruction Follow activity as directed Keep your appointments as scheduled Take your immunizations and boosters as scheduled If your symptoms worsen call your PCP, if no PCP go to Urgent Care Center or Emergency Room Smoking is Dangerous to Your Health. Avoid second hand smoke Call the 24-hour hour crisis hotline for domestic abuse at Colby Rodriguez MD Aug 21, 2016 09:26
--- NOTE | 2016-08-26 15:59 | HHI.DS ---
Discharge Summary Admission Date Aug 18, 2016 at 03:19 Discharge Date: Aug 21, 2016 Admitting Diagnosis small bowel obstruction (1) Small bowel obstruction Diagnosis: Principal (2) HTN (hypertension) Diagnosis: Secondary (3) Hyperlipidemia Diagnosis: Secondary (4) Hypothyroidism Diagnosis: Secondary (5) Anxiety Diagnosis: Secondary Brief History Ms. Clements is a pleasant 81 y/o female with HTN, hyperlipidemia, hypothyroidism and GERD who presented to the ED at [facility] on 08/17/16 with complaints of sudden onset abdominal pain at about 5:30 PM yesterday evening. She reported that the pain began after he had eaten dinner and then took her tramadol and her lovastatin which she feels started her abdominal discomfort. Patient reports that her pain is mainly in the epigastric area with associated nausea but no vomiting. Patient states she did have a normal bowel movement after the onset of this pain which slightly decreased her overall discomfort. However, patient states the pain has progressively worsened and shifted to both flanks and back, as well as lower end of the abdomen. She continues to be nauseous but no vomiting has occurred. She denies fever, chills, dizziness, palpitations, chest pain or shortness of breath. CT Abd/pelvis (08/17/16) noted dilated loops of small bowel with air-fluid levels suggest small bowel obstruction or dynamic ileus, no transition point or cause for the obstruction seen, dilation of the common bile duct and pancreatic duct down to the ampulla suggests possible ampullary mass, no stones seen. There is also a 2 cm soft tissue density in the left retroperitoneum which probably represents proximal loop of small bowel the junction of the duodenum and jejunum. However, the location and density would also be consistent with a splenic artery aneurysm or an exophytic mass arising from the body of the pancreas. Pts LFTs at admission were all WNL. She denies any weight loss. SHe does drink one alcoholic beverage per day. Hospital Course - Pt admitted with acute onset of abd pain and nausea. - CT Abd/pelvis (08/17) --> Dilated loops of small bowel with air-fluid levels suggest small bowel obstruction or dynamic ileus. No transition point or cause for the obstruction seen. Dilation of the common bile duct and pancreatic duct down to the ampulla suggests possible ampullary mass. No stones seen. There is a 2 cm soft tissue density in the left retroperitoneum which probably represents proximal loop of small bowel the junction of the duodenum and jejunum. However, the location and density would also be consistent with a splenic artery aneurysm or an exophytic mass arising from the body of the pancreas. - GI consulted. - Pt had NGT placed with 1.5 L of clear/reddish aspirate out in the ER - MRI Abdomen (08/18) --> No pancreas mass is visualized. The finding described near the tail of the pancreas on recent CT represents normal bowel. The common bile duct and pancreatic duct are at the upper limits for normal in size but no definite obstructing process is seen. Abnormal dilated small bowel with transition point in the mid to distal ileum. There is also mesenteric edema and free fluid in the pelvis. Findings are diagnostic of a small bowel obstruction. No specific cause for the obstruction is identified. BOWELS MOVING. NGT OUT. TOLERATING FULL LIQUIDS. SHE WANTS TO GO HOME. I INSTRUCTED HER ON DIET. Pt Condition on Discharge: Stable Discharge Disposition: Discharge Home Discharge Instructions DIET: Follow Instructions for: Soft Diet Additional Diet Instructions: advance to regular diet in next 48hrs if tolerating soft Activities you can perform: Regular-No Restrictions Follow up Referrals: PCP Follow-up - 1 Week with [facility] - [address] bran Continued Medications: Calcium Carbonate-Vitamin D (Calcium 600+D) 600-200 Mg-Unit Tab 1 TAB PO BID TAB Lactobacillus Acidophilus (Probiotic) 1 Cap Cap 1 CAP PO TIDAC Nutritional Supplement #90 Ref 0 CAP Levothyroxine (Levothyroxine) 50 Mcg Tab 50 MCG PO DAILY #93 Lovastatin (Lovastatin) 20 Mg Tab 20 MG PO HS #93 Mirtazapine (Mirtazapine) 30 Mg Tab 30 MG PO HS #90 Multiple Vitamin (Multi-Vitamin) 1 Tab Tab 1 TAB PO DAILY Telmisartan (Telmisartan) 80 Mg Tab 80 MG PO DAILY Blood Pressure Management #30 Ref 0 TAB Tramadol (Tramadol) 50 Mg Tab 50 MG PO Q6HR #360 Colby Rodriguez MD Aug 26, 2016 15:59
== END 2016-08-21 10:12 | disposition home or self-care (01) | DRG 390 ==
LOC: NEPE 21:52 → NEDA 08-18 03:19 → NEDH 08-18 07:05 → HOCA 08-18 10:48
PROVIDERS: ADMIT Hospitalist; ATTEND Hospitalist
DX: K56.60 Unspecified intestinal obstruction (principal); N18.3 Chronic kidney disease, stage 3 (moderate); I12.9 Hypertensive chronic kidney disease with stage 1 through stage 4 chronic kidney disease, or unspecified chronic kidney disease; F41.9 Anxiety disorder, unspecified; E03.9 Hypothyroidism, unspecified; E78.5 Hyperlipidemia, unspecified; K21.0 Gastro-esophageal reflux disease with esophagitis; Z85.828 Personal history of other malignant neoplasm of skin; Z87.891 Personal history of nicotine dependence; Z88.5 Allergy status to narcotic agent; Z88.0 Allergy status to penicillin; Z88.8 Allergy status to other drugs, medicaments and biological substances
CPT/HCPCS: 43753; 74000; 74020; 74177; 74183; 74245; 80048; 80053; 81001; 82105; 82378; 82550; 82552; 83605; 83690; 83735; 84484; 85025; 85610; 85730; 86301; 93005; 96361; 96374; 96375; 96376; A9579; J1170; J2270; J2405; J3480; J7030; J7040; Q9963; Q9967

== ENCOUNTER 2016-08-27 08:30 | Inpatient (IN) | payer MEDICARE ==
[~2016-08-27] VITALS: Ht 162.6 cm; Wt 70.8 kg
[~2016-08-27 08:30] MED LIST changes: -DIPH2.5T14 PO; -MIRT30TA PO
[2016-10-04] MEDS ORDERED: INSULIN HUMAN REGULAR 1,000 UNITS/10 ML VIAL SQ PRN (06:30)
[2016-10-04] MEDS ORDERED: METOPROLOL TARTRATE 25 MG TAB PO PRN (06:30)
[2016-10-04] MEDS ORDERED: ACETAMINOPHEN 1000 MG/100 ML VIAL IV ONE (06:45)
[2016-10-04] MEDS ORDERED: SUGAMMADEX SODIUM 200 MG/2 ML VIAL IV PUSH ONE ×2 (06:45)
[2016-10-04 07:00] VITALS: BP 116/67; PULSE 63; RESP 18; TEMP 98; O2SAT 98
[2016-10-04] MEDS ORDERED: GELFOAM SIZE 100 ONE (07:16)
[2016-10-04] MEDS ORDERED: THROMBIN (TOPICAL) 5,000 UNIT VIAL ONE (07:16)
[2016-10-04] MEDS ORDERED: BUPIVACAINE HCL PF 0.25% 30 ML VIAL ONE (07:16)
[2016-10-04] MEDS ORDERED: LIDOCAINE 1%/EPINEPHrine 1:100,000 SOLN 30 ML VIAL ONE (07:16)
[2016-10-04] MEDS ORDERED: VANCOMYCIN HCL 1000 MG VIAL ONE (07:16)
[2016-10-04] MEDS ORDERED: GENTAMICIN SULFATE 80 MG/2 ML VIAL ONE (07:17)
[2016-10-04] MEDS ORDERED: ceFAZolin INJ 1,000 MG VIAL ONE (07:17)
[2016-10-04] MEDS ORDERED: CLINDAMYCIN PHOS 600 MG/4 ML VIAL ONE (07:41)
[2016-10-04] MEDS ORDERED: SODIUM CHLORIDE 0.9% INJ 100 ML ONE (07:42)
[2016-10-04] MEDS ORDERED: FAMOTIDINE 20 MG/2 ML VIAL ONE (07:49)
[2016-10-04] MEDS ORDERED: fentaNYL CITRATE 250 MCG/5 ML AMP ONE ×2 (07:50→14:00)
[2016-10-04] MEDS ORDERED: CLINDAMYCIN 600 MG/NS 100 ML IV SCH ×2 (08:00)
[2016-10-04] MEDS ORDERED: LACTATED RINGER'S 1000 ML IV SCH (08:30)
[2016-10-04] MEDS ORDERED: SODIUM CHLORID 0.9% 500 ML IV SCH (08:30)
[2016-10-04] MEDS ORDERED: GENTAMICIN SULFATE 80 MG/2 ML VIAL IRRIGATION ONE (09:40)
[2016-10-04] MEDS ORDERED: PROPOFOL 200 MG/20 ML AMP IV ONE (09:48)
[2016-10-04] MEDS ORDERED: ePHEDrine/NS 25 MG/5 ML SYR IV ONE (09:48)
[2016-10-04] MEDS ORDERED: ONDANSETRON HCL 4 MG/2 ML VIAL IV PUSH ONE (09:49)
[2016-10-04] MEDS ORDERED: SODIUM CHLORID 0.9% 500 ML INJ 500 ML IV ONE (09:49)
[2016-10-04] MEDS ORDERED: NORMOSOL R INJ 1,000 ML IV ONE ×2 (09:49→12:00)
[2016-10-04] MEDS ORDERED: LACTATED RINGER'S 1000 ML INJ 1,000 ML IV ONE (12:00)
[2016-10-04] MEDS ORDERED: BUPIVACAINE LIPOSOME PF 1.3% 20 ML VIAL INFIL ONE (13:19)
[2016-10-04] MEDS ORDERED: MIDAZOLAM HCL 2 MG/2 ML VIAL ONE (14:00)
[2016-10-04] MEDS ORDERED: DO NOT ADM ANY ANTICOAGULANT DRUGS XX PRN (14:30)
[2016-10-04] MEDS ORDERED: *morphine SULFATE 8 MG/ML PERIprocedure ONLY ONE (15:43)
[2016-10-04 17:15] VITALS: BP 156/69; PULSE 74; RESP 18; TEMP 95.8; O2SAT 99
--- NOTE | 2016-10-04 17:59 | RADRPT ---
EXAM DATE/TIME: 10/04/2016 09:14 [place] COMPARISON: No previous studies available for comparison. INDICATIONS : L5-S1 Hardware removal with laminectomy and additional hardware placement. MEDICAL HISTORY : Hypertension. Chronic renal insufficiency. Gastroesophageal reflux disease. SURGICAL HISTORY : Fusion, lumbar. ENCOUNTER: Initial ACUITY: 1 day PAIN SCORE: Non-responsive. LOCATION: Lumbar spine. FINDINGS: There is anterior and posterior fusion with pedicle screws and interbody graft from L5-S1. There is g rade 1 spondylolisthesis of L5 on S1. CONCLUSION: 1. Postsurgical changes as above. Conner Smallwood MD on October 04, 2016 at 17:57 Board Certified Radiologist. This report was verified electronically.
[2016-10-04] MEDS ORDERED: NALOXONE HCL 0.4 MG/ML AMP IV PRN ×2 (18:00)
[2016-10-04] MEDS ORDERED: METHOCARBAMOL 500 MG TAB PO PRN (18:00)
[2016-10-04] MEDS: traMADol HCL 50 MG TAB PO SCH (18:00)
[2016-10-04] MEDS ORDERED: PROMETHAZINE HCL 25 MG TAB PO PRN (18:00)
[2016-10-04] MEDS ORDERED: ONDANSETRON HCL 4 MG/2 ML VIAL IV PRN (18:00)
[2016-10-04] MEDS ORDERED: HYDROmorphone HCL PF 1 MG/ML VIAL IV PRN (18:00)
[2016-10-04] MEDS ORDERED: D5-1/2 NS + KCL 20 MEQ INJ 1,000 ML IV SCH (18:01)
--- NOTE | 2016-10-04 18:12 | PD.OP ---
Operative Report Date of Surgery: Oct 04, 2016 Preoperative Diagnosis: (1) Lumbar radiculopathy (2) Spondylolisthesis of lumbar region (3) Failure of spinal fusion 1. Left L5 radiculopathy 2. Left L5-S1 foraminal stenosis 3. L5-S1 spondylolisthesis 4. L5-S1 failed fusion 5. Left L5-S1 foraminal subannular disc herniation with secondary foraminal stenosis and L5 nerve compression Postoperative Diagnosis: (1) Lumbar radiculopathy (2) Spondylolisthesis of lumbar region (3) Failure of spinal fusion 1. Left L5 radiculopathy 2. Left L5-S1 foraminal stenosis 3. L5-S1 spondylolisthesis 4. L5-S1 failed fusion 5. Left L5-S1 foraminal subannular disc herniation with secondary foraminal stenosis and L5 nerve compression Procedure: 1. Left L5 - S1 partial facetectomy, Foraminotomy, discectomy, decompression left L5 nerve root - microtechnique 2. Revision left L5 - S1 posterior instrumentation, replacement pedicle screw fixation 3. left L5 - S1 interbody fusion, autograft and allograft bone, demineralized bone matrix 4. 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 Loosening of the left S1 screw. Left L5-S1 foraminal subannular disc herniation with significant compression left L5 nerve root Procedure in detail The patient was brought to the operating room and general endotracheal anesthesia induced without difficulty Lines were established per Anesthesia Sequential compression devices were in place The patient was positioned prone on the concentric Dimitry table with the side bolsters and all extremities appropriately padded Leads for intraoperative neuro monitoring were placed prior to positioning and a baseline study obtained Appropriate timeout procedure was performed with all personnel present and in agreement The lumbar region was shaved with clippers and sterilely prepped and draped 1% Xylocaine with epinephrine was used for local infiltration over the incision site which was made at the midline L5-S1 level at the previous incision site. The incision was carried sharply down to the lumbodorsal fascia which was sharply incised to the left of the L5-S1 spinous processes Granado elevator was used for subperiosteal elevation of paraspinous musculature and fascia away from the lamina and spinous processes of L5 and S1 on the left side The deep self-retaining retractor was placed The appropriate levels were verified with intraoperative C-arm The microscope was moved into place and used for the remainder of the procedure including the closure The previous pedicle screws were inspected. There was a small amount of movement noted at the left L5-S1 pedicle screws. The previous Depuy [place] pedicle screws were removed by disengaging the locking, and then removing the pedicle screws and davide. The L5 screw on the left appeared firmly seated but the S1 screw was mildly loose. Once the screws were removed, the left L5-S1 facet and canal could be visualized. Tissue and adhesions surrounding the left L5-S1 facet, transverse process and left sacral ala were removed with the rongeurs. An additional portion of the medial left L5-S1 facet was removed with the [place] rongeur. Additional inferior left L5 lamina was removed. The lateral thecal sac was visualized and retracted medially adjacent to the left L5 pedicle and the exiting left L5 nerve root was visualized at its takeoff from the thecal sac. The nerve root was exposed using the microdissectors as it coursed around the inferior medial left L5 pedicle out the foramen. Soft tissue and additional facet dorsal to the L5 nerve root in the foramen was further removed with the [place] rongeurs. The L5 nerve root was noted to be moderately compressed at the mid portion of the foramen by the border of the posterior superior S1 vertebral body and moderate subannular disc herniation. The annulus was incised at the left L5-S1 level with 11 blade knife and discectomy performed with pituitary biopsy forceps and straight and angled curettes. The reverse-angle curet and the thin footplate impactors were used to remove the superior posterior border of the left S1 vertebral body to further decompress the L5 nerve root in the foramen. Careful inspection of the interspace revealed minimal motion at the L5-S1 segment consistent with a stable nonunion. The curettes and endplate scrapers were used to prepare the left L5-S1 interspace lateral to the previously placed interbody cage. The region was well irrigated without like irrigation and a mixture of cancellus autograft bone chips and demineralized bone matrix along with the patient's retained lamina autograft was placed at the left L5-S1 interspace and packed firmly into place with the impactors. The left L5 nerve root was again checked to make sure that there was no impingement of the nerve throughout the canal or foramen. The additional bone graft was then packed along the decorticated left L5-S1 posterior lateral structures including the transverse process, lateral facet, and sacral ala. The existing pedicle screw sites were then re-tapped with the appropriate size Spine Wave, and additional bone graft placed at the pedicle screw site, prior to placing new screws with a 7.5 x 35 mm screw at S1 and a 6.5 x 45 mm screw at L5. Good solid engagement of the screws was achieved. The new Spine Wave davide was then secured to the new pedicle screws at the left L5-S1 level and final tightened with the torque wrench and anti-torque device. The entire construct was checked with intraoperative C-arm and felt to be satisfactory The region was well irrigated with antibiotic irrigation The closure was performed with 0 Vicryl interrupted for the deep and superficial fascia, with 3-0 Vicryl for the subcutaneous closure and 4-0 Vicryl running subcuticular closure. Dressings sterile Mastisol, Steri-Strips and Primapore was placed The patient was turned into supine position and taken to recovery room in stable condition All counts were correct at the end of the case Estimated blood loss was 50 cc No specimen was sent to pathology Neuro monitoring was stable during the procedure Osmani Curran MD Oct 04, 2016 18:12
[2016-10-04] MEDS ORDERED: SODIUM CHLORIDE 0.9% FLUSH 5 ML FLUSH IVF PRN (18:15)
[2016-10-04] MEDS ORDERED: PILL SPLITTER OTHER PRN (18:15)
[2016-10-04] MEDS: MORPHINE SULFATE 4 MG/ML INJ IV PRN (18:39)
[2016-10-04 20:00] VITALS: BP 138/59; PULSE 81; RESP 18; TEMP 97.8; O2SAT 98
[2016-10-04] MEDS ORDERED: SODIUM CHLORIDE 0.9% FLUSH 5 ML FLUSH IVF SCH (21:00)
[2016-10-04] MEDS: KETOROLAC TROMETHAMINE 60 MG/2 ML (IM) VIAL IM SCH (21:51)
[2016-10-04] MEDS: DOCUSATE SODIUM 100 MG CAP PO SCH (21:52)
[2016-10-04] MEDS: CALCIUM/VITAMIN D 250 MG/125 U TAB PO SCH (21:52)
[2016-10-05] VITALS: BP 131/56; PULSE 77; RESP 18; TEMP 97.4; O2SAT 99
[2016-10-05] MEDS: traMADol HCL 50 MG TAB PO SCH ×2 (00:30→05:42)
[2016-10-05 04:00] VITALS: BP 145/65; PULSE 81; RESP 16; TEMP 99.7; O2SAT 99
[2016-10-05] MEDS: MORPHINE SULFATE 4 MG/ML INJ IV PRN (04:25)
[2016-10-05] MEDS: KETOROLAC TROMETHAMINE 60 MG/2 ML (IM) VIAL IM SCH (05:44)
[2016-10-05] MEDS ORDERED: LEVOTHYROXINE SODIUM 50 MCG TAB PO SCH (06:00)
[2016-10-05 08:00] VITALS: BP 130/62; PULSE 80; RESP 16; TEMP 97.9; O2SAT 96
[2016-10-05] MEDS: CALCIUM/VITAMIN D 250 MG/125 U TAB PO SCH (08:20)
[2016-10-05] MEDS: DOCUSATE SODIUM 100 MG CAP PO SCH (08:20)
[2016-10-05 08:25] VITALS: O2SAT 98
[2016-10-05] MEDS ORDERED: METH500T3 PO (08:53)
[2016-10-05] MEDS ORDERED: MS C15TA2 PO (08:53)
--- NOTE | 2016-10-05 08:53 | HHI.DCPOC ---
Discharge Care Plan Diagnosis: (1) Spondylolisthesis of lumbar region (2) Lumbar radiculopathy Your Health Problems Are: Difficulty with ADL Incision/Drains Loss of Movements Chronic Pain Goals to Promote Your Health * To prevent worsening of your condition and complications * To maintain your health at the optimal level Directions to Meet Your Goals Take your medications as prescribed Follow your dietary instruction Follow activity as directed Keep your appointments as scheduled Take your immunizations and boosters as scheduled If your symptoms worsen call your PCP, if no PCP go to Urgent Care Center or Emergency Room Smoking is Dangerous to Your Health. Avoid second hand smoke Call the 24-hour hour crisis hotline for domestic abuse at Osmani Curran MD Oct 05, 2016 08:53
--- NOTE | 2016-10-05 08:56 | HHI.DS ---
Discharge Summary Admission Date Oct 04, 2016 at 05:48 Discharge Date: Oct 05, 2016 Admitting Diagnosis Lumbar spondylolisthesis Lumbar radiculopathy Chronic low back pain (1) Lumbar radiculopathy Diagnosis: Principal ICD Code: M54.16 (2) Spondylolisthesis of lumbar region Diagnosis: Secondary ICD Code: M43.16 (3) Failure of spinal fusion Diagnosis: Secondary ICD Code: T84.9XXA Procedures Date of Surgery: Oct 04, 2016 Preoperative Diagnosis: (1) Lumbar radiculopathy (2) Spondylolisthesis of lumbar region (3) Failure of spinal fusion 1. Left L5 radiculopathy 2. Left L5-S1 foraminal stenosis 3. L5-S1 spondylolisthesis 4. L5-S1 failed fusion 5. Left L5-S1 foraminal subannular disc herniation with secondary foraminal stenosis and L5 nerve compression Postoperative Diagnosis: (1) Lumbar radiculopathy (2) Spondylolisthesis of lumbar region (3) Failure of spinal fusion 1. Left L5 radiculopathy 2. Left L5-S1 foraminal stenosis 3. L5-S1 spondylolisthesis 4. L5-S1 failed fusion 5. Left L5-S1 foraminal subannular disc herniation with secondary foraminal stenosis and L5 nerve compression Procedure: 1. Left L5 - S1 partial facetectomy, Foraminotomy, discectomy, decompression left L5 nerve root - microtechnique 2. Revision left L5 - S1 posterior instrumentation, replacement pedicle screw fixation 3. left L5 - S1 interbody fusion, autograft and allograft bone, demineralized bone matrix 4. Left L5-S1 posterolateral fusion,autograft and allograft bone, demineralized bone matrix PE at Discharge Awake and alert Respirations clear Cardiac regular Abdomen soft No extremity edema Dressing dry and intact Sensation intact lower extremities Strength mildly diminished left hip abductors Hospital Course Patient admitted for the above noted procedure performed without complication. Postop day #1: IV fluids and Adler discontinued. Physical therapy initiated with TLSO brace. Pain adequately controlled with oral medications. Postoperative course without complication. Patient discharged home with home health care Pt Condition on Discharge: Good Discharge Disposition: Disch w/ Home Health Serv Discharge Instructions DIET: Follow Instructions for: As Tolerated, No Restrictions ACTIVITIES You can perform: Weight Bearing As Milagros Activities to Avoid: Lifting/Bending, Strenuous Activity New Medications: Morphine ER (Ms Contin) 15 Mg Tab 15 MG PO BID Pain Management #20 Ref 0 TAB Methocarbamol (Methocarbamol) 500 Mg Tab 500 MG PO Q8HR PRN SPASM #10 TAB Continued Medications: Calcium Carbonate-Vitamin D (Calcium 600+D 200) 600-200 Mg-Unit Tab 1 TAB PO BID TAB Lactobacillus Acidophilus (Probiotic) 1 Cap Cap 1 CAP PO TIDAC Nutritional Supplement #90 Ref 0 CAP Levothyroxine (Levothyroxine) 50 Mcg Tab 50 MCG PO DAILY #93 Lovastatin (Lovastatin) 20 Mg Tab 20 MG PO HS #93 Multiple Vitamin (Multi-Vitamin) 1 Tab Tab 1 TAB PO DAILY Telmisartan (Telmisartan) 80 Mg Tab 80 MG PO DAILY Blood Pressure Management #30 Ref 0 TAB Tramadol (Tramadol) 50 Mg Tab 50 MG PO Q6HR #360 Osmani Curran MD Oct 05, 2016 08:56
[2016-10-05] MEDS ORDERED: LOSARTAN 50 MG TAB PO SCH ×2 (09:00)
[2016-10-05] MEDS ORDERED: PANTOPRAZOLE SOD 40 MG DELAYED RELEASE TAB PO SCH (09:00)
[2016-10-05] MEDS ORDERED: MULTIVITAMIN TAB PO SCH (09:00)
--- NOTE | 2016-10-05 09:04 | HHI.FF ---
Face to Face Verification Diagnosis: (1) Lumbar radiculopathy (2) Spondylolisthesis of lumbar region (3) Failure of spinal fusion Physical Therapy Order: Evaluate and Treat, Improve ambulation, Strength and gait training Home Health Nursing Order: Medical education Wound care and dressing changes I have seen patient Teri Clements on 10/05/16. My clinical findings support the need for the requested home health care services because: Ltd mobility - disease progression Deconditioned w/ increased weakness Limited ability to care for self High risk of falls I certify that my clinical findings support that this patient is homebound because: Post-op weakness Unsteady gait/balance Unsafe to leave home unassisted Unable to use public transportation Osmani Curran MD Oct 05, 2016 09:03
[2016-10-05 09:53] LABS: AUTOMATED NEUTROPHIL # 3.6 TH/MM3 (1.8-7.7); BASOPHIL % 0.4 % (0.0-2.0); EOSINOPHIL # 0.1 TH/MM3 (0-0.4); HEMATOCRIT 36.5 % (35.0-46.0); HEMO FLAGS DIFF FINAL; LYMPH % 23.5 % (9.0-44.0); LYMPHOCYTE # 1.3 TH/MM3 (1.0-4.8); MEAN CELL VOLUME 91.3 FL (80.0-100.0); MEAN CORPUSCULAR HEMOGLOBIN 31.3 PG (27.0-34.0); MEAN CORPUSCULAR HGB CONC 34.3 % (32.0-36.0); MONO % 8.9 % (0.0-8.0); NEUT % 66.2 % (16.0-70.0); PLATELET COUNT 177 TH/MM3 (150-450); RED BLOOD COUNT 3.99 MIL/MM3 (4.00-5.30); RED CELL DISTRIBUTION WIDTH 14.3 % (11.6-17.2); WHITE BLOOD COUNT 5.4 TH/MM3 (4.0-11.0)
[2016-10-05] MEDS ORDERED: MORPHINE SULFATE 15 MG CONTROLLED RELEASE TAB PO SCH (10:00)
[2016-10-05 10:24] LABS: BICARBONATE 27.2 MEQ/L (21.0-32.0)
[2016-10-05 12:00] VITALS: BP 150/73; PULSE 79; RESP 16; TEMP 96.4; O2SAT 100
== END 2016-10-05 17:36 | disposition home health service (06) | DRG 460 ==
LOC: HSDI 10-04 05:48 → EDSTATUS 10-04 08:30 → HSDI 10-04 10:54 → N06B 10-04 16:28
PROVIDERS: ADMIT Neurological Surgery; ATTEND Neurological Surgery
PROC: 0ST40ZZ Resection of Lumbosacral Disc, Open Approach (ICD-10-PCS; 2016-10-04)
PROC: 01NB0ZZ Release Lumbar Nerve, Open Approach (ICD-10-PCS; 2016-10-04)
PROC: 0QP004Z Removal of Internal Fixation Device from Lumbar Vertebra, Open Approach (ICD-10-PCS; 2016-10-04)
PROC: 0SG3071 Fusion of Lumbosacral Joint with Autologous Tissue Substitute, Posterior Approach, Posterior Column, Open Approach (ICD-10-PCS; principal; 2016-10-04 08:16)
DX: M51.16 Intervertebral disc disorders with radiculopathy, lumbar region (principal); T84.9XXA Unspecified complication of internal orthopedic prosthetic device, implant and graft, initial encounter; M43.16 Spondylolisthesis, lumbar region; M48.07 Spinal stenosis, lumbosacral region; Z98.1 Arthrodesis status; E78.5 Hyperlipidemia, unspecified; I10 Essential (primary) hypertension; E03.9 Hypothyroidism, unspecified; K44.9 Diaphragmatic hernia without obstruction or gangrene; K21.9 Gastro-esophageal reflux disease without esophagitis; Z85.828 Personal history of other malignant neoplasm of skin; Z88.0 Allergy status to penicillin; Z88.8 Allergy status to other drugs, medicaments and biological substances
CPT/HCPCS: 72100; 76000; 80048; 85025; 94150; C1713; C9290; J0131; J0690; J1580; J1885; J2250; J2270; J2405; J3010; J3370; J3480; J7040; J7120; L0484